=== PATIENT | male | born 1965 | race Caucasian/White ===

== ENCOUNTER → 2017-03-28 | Outpatient (CLI) | payer OTHER ==
[~2017-03-28] MED LIST: CETI10TA84 PO; IBUP-1277 PO; METF-384 PO; OXYC1TAB3 PO
[2017-03-28 17:53] LABS: BLOOD UREA NITROGEN 23 mg/dl (7-18); BUN/CREATININE RATIO 14.5 (10-20); CALCIUM 9.8 mg/dl (8.5-10.1); CARBON DIOXIDE 27 mmol/L (21-32); CHLORIDE 105 mmol/L (98-107); CREATININE 1.56 mg/dl (0.60-1.40); GLUCOSE 109 mg/dl (70-99); POTASSIUM 4.7 mmol/L (3.5-5.1); SODIUM 138 mmol/L (136-145)
[2017-03-28 18:04] LABS: CHOLESTEROL 131 mg/dl (0-200); CHOLESTEROL/HDL RATIO 1.9; HDL CHOLESTEROL 68 mg/dl; LDL CHOLESTEROL CALCULATED 48 mg/dl; THYROID STIMULATING HORMONE 0.687 uIu/ml (0.300-4.500); TRIGLYCERIDES 76 mg/dl (0-150); VERY LOW DENSITY LIPOPROT CALC 15 mg/dl
[2017-03-28 19:55] LABS: RATIO 526.6 mcg/mg (0-30.0)
[2017-03-29 07:24] LABS: ESTIMATED AVERAGE GLUCOSE 283 mg/dl; HA1C FLAG Normal (Normal)
== END | disposition home or self-care (01) ==
LOC: C.LABPBG 14:46
PROVIDERS: ATTEND Family Medicine
DX: E11.49 Type 2 diabetes mellitus with other diabetic neurological complication (principal)

== ENCOUNTER → 2017-04-06 | Day surgery (SDC) | payer OTHER ==
[~2017-04-06] VITALS: Ht 182.9 cm; Wt 95.0 kg
[~2017-04-06] MED LIST changes: +ASPCH81X PO; +DC ALL ANTICOAGULANTS ONE; +FENTANYL CITRATE INJ 50 MCG/1 ML 2 ML VIAL ONE; +HEPARIN SOD (PORCINE) 1000 UNIT/ML 10 ML VIAL ONE; +MIDAZOLAM HCL 1 MG/ML 2ML VIAL ONE; +NITROGLYCERIN/D5W 100MCG/ML 20ML SYR ONE; +NiCARDipine HCL INJ 2.5 MG/ML 10 ML AMP ONE; +OXYC-90 PO; -OXYC1TAB3 PO; +SODIUM CHLORIDE 0.9% 1000ML 1,000 ML IV SCH
[2017-04-06 07:15] VITALS: BP 141/89; PULSE 83; TEMP 36.5; O2SAT 99; Ht 182.9 cm; Wt 95.0 kg
--- NOTE | 2017-04-06 08:22 | History & Physical Bridge Note ---
H&P Re-Evaluation Bridge Note: I have examined the patient, reviewed the History & Physical and in the interval since the performance of the History & Physical I have noted the following changes of clinical significance: No changes noted
--- NOTE | 2017-04-06 09:21 | Cardiac Catheterization ---
Procedure Note Procedure Date Apr 06, 2017. Pre-Procedure Diagnosis Cardiomyopathy AUC Score 9 Post-Procedure Diagnosis Normal Coronary Arteries Procedure(s) Performed Coronary Angiography, Left Heart Cath, LV Angiography Senior Design Engineer Dr. Preston Fisher Trap(s) None Estimated Blood Loss None Medication(s) Heparin, Versed, Lidocaine 1% Summary of Findings Widely patent coronary anatomy. Low normal LVEF. Hemodynamics Rest Ao: 101/76 Final Ao: 115/68 LV: 114/1 Recommendations Medical therapy and/or Counseling Specimens None Radiation Exposure (mGy) 423 Contrast (mls) 114 Disposition Check Out Clerk Holding/Recovery ACC Data Cardiac Status Clinical evaluation leading to the procedure CAD Presntation: No Sxs, no angina Anginal Classification: No symptoms Heart Failure: No Cardiogenic Shock w/in 24Hrs: No Cardiac Arrest w/in 24Hrs: No Imaging studies past 6 months: Yes Stress studies past 6 months: No Coronary Anatomy Dominant: Right Left Main (% Stenosis): Normal LAD (% Stenosis): Normal Circumflex (% Stenosis): Normal RCA (% Stenosis): Normal Left Ventricular Angiography EF (%): 52% Diagnostic Status: Elective Closure Device Percutaneous Entry Location: Radial
--- NOTE | 2017-04-06 09:28 | Discharge Instructions ---
Discharge Instructions Procedure Procedure Date: Apr 06, 2017. Reason for Visit: Abn Echo *. Discharge Discharge Date: Apr 06, 2017. Discharge Diagnosis: Normal Coronaries and Low Normal LVEF Last Recorded Wt (Kilograms): 95 Anesthesia Post Anesthesia Instructions: If you have had General Anesthesia or IV Sedation: * Do not drive today. * Resume driving when surgeon permits. * Do not make important decisions or sign legal documents today. * Call surgeon for: 1. Temperature elevations greater than 101 degrees F. 2. Uncontrollable pain. 3. Excessive bleeding. 4. Persistent nausea and vomiting. 5. Medication intolerance (nausea, vomiting or rash). * For nausea and vomiting use only clear liquids such as: tea, soda, bouillon until nausea subsides, then gradually increase diet as tolerated. * If you have any concerns or questions, call your surgeon's office. If physician is unavailable and it is an emergency, call 911 or go to the nearest emergency room. Instructions Activity Recommendations: limitations Recommended Home Diet: resume previous diet Allergies: Coded Allergies: No Known Allergies (Unverified , 02/05/17) Provider Instructions ACTIVITY RECOMMENDATIONS: Excess manipulation of the wrist should be avoided for the next 24-48 hours. * No lifting over 2 pounds (approximately a 1/2 gallon of milk) with the utilized arm for 24 hours. * No strenuous activity such as bowling or tennis for 3 days. * Keep the site of the procedure covered with a bandage for 24 hours. *You may shower the day after the procedure. Do not take a tub bath or submerge the puncture site in water for the next 3 days. *Do not operate any motorized equipment for 3 days. SPECIAL CARE INSTRUCTIONS: The site may be slightly bruised and sore following your procedure. Should any of the following occur, contact the DrJessica who performed your procedure. 1. Redness/inflammation, swelling, chills, or fever, or colored drainage at procedure site within 3-7 days after your procedure. 2. Coldness, discoloration, ongoing numbness, severe pain, or swelling. Expect mild tingling of hand and tenderness at the puncture site for up to three days. If this persists beyond three days, or other symptoms develop, notify the DrJessica who performed your procedure. BLEEDING: If the procedure site on your wrist begins to bleed, do not panic 1. Place 1 or 2 fingers firmly just slightly above the insertion site to stop the bleeding. You may be able to feel your pulse as you hold pressure. 2. Lift your finger after 5 minutes to see if the bleeding has stopped. 3. Once the bleeding has stopped, gently wipe the wrist area clean with a bandage. * If the bleeding from your wrist does not stop after 10 minutes, or if there is a large amount of bleeding or spurting, call 911 (do not drive yourself to the hospital). SKIN IRRITATION: * You may experience some redness and/or swelling in the area where radiation was administered. If any skin irritation occurs, please contact your family physician. FOLLOW UP VISIT: Keep any scheduled doctor appointments. Follow Up Additional Instructions: Do not take Metformin for 3 days post heart catheterization. Follow-up with: Office will call [place] Recommendations: Call your doctor if: * Temperature above 101 degrees * Pain not relieved by pain medicine ordered * There is increased drainage or redness from any incision * You have any unanswered questions or concerns. Your Doctors Instructions noted above were prepared by provider Sj Preston. Patient Signature Section: Patient Instructions Signature Page Arturo Barksdale Patient (or Guardian) Signature/Date: I have read and understand the instructions given to me by my caregivers. Caregiver/RN/Doctor Signature/Date: The above-named patient and/or guardian has received patient instructions on this date. + Original Patient Signature Page (only) stays with chart. Please make copy for patient.
--- NOTE | 2017-04-06 09:31 | HISTORY & PHYSICAL EXAMINATION ---
DATE OF ADMISSION: 04/06/2017 CHIEF COMPLAINT: Preoperative clearance for oral surgery. HISTORY OF PRESENT ILLNESS: This is a 51-year-old diabetic male patient who was seen approximately a month ago by Dr. Gaines for preoperative risk assessment regarding oral surgery. He is a diabetic, who has not been compliant with medical care. Approximately 2 years ago, he had a cardiac catheterization that showed widely patent coronary arteries. He was then lost to followup to our group. He at that time was noted to have a low normal LVEF at around 52%. As part of the preoperative workup, the patient underwent an echocardiogram that showed a marked change in his LV systolic function with the estimated left ventricular ejection fraction being 20%-25%. There was also suggestion on the echocardiogram of new wall motion abnormalities of the inferior, anterior septal, and inferoseptal wall hypokinesis. The patient is here today for a repeat cardiac catheterization based on the abnormal echocardiogram to rule out significant coronary artery disease. The patient had a cardiac catheterization in 2011 that showed widely patent coronary anatomy. At that time, his estimated left ventricular ejection fraction was low normal at 52%. The patient does have a known chronic left bundle branch block. ALLERGIES: No known medical allergies. PAST MEDICAL HISTORY: The patient has a history of diabetes, which has not been well controlled. He has a problem with medical noncompliance. He has had diabetic neuropathy and a history of chronic chewing tobacco use. FAMILY MEDICAL HISTORY: Noncontributory. SOCIAL HISTORY: The patient uses smokeless tobacco. He is and lives with his family. REVIEW OF SYSTEMS: A 10-point review of systems is negative except for the history of chief complaint. PHYSICAL EXAMINATION: GENERAL: He is alert and oriented. VITAL SIGNS: Blood pressure is 116/70 and pulse is regular at 80. He is afebrile. HEENT: He is normocephalic. Pupils are equal and reactive to light. Extraocular muscles are intact bilaterally. NECK: The neck veins are flat. Carotids have good upstrokes bilaterally without bruits. Thyroid is nonpalpable. RESPIRATORY: Breath sounds equal bilaterally and clear to auscultation. CARDIOVASCULAR: Heart has a regular rhythm. Normal S1 and S2. No S3 or S4. No cardiac rubs or murmurs. GASTROINTESTINAL: Abdomen is soft and nontender without organomegaly. EXTREMITIES: Free of edema, digit clubbing, or cyanosis. NEUROLOGIC: Grossly intact. SKIN: Warm to touch. LYMPH NODES: Negative to palpation. IMPRESSION: 1. Abnormal echocardiogram suggesting an ischemic cardiomyopathy. 2. Preoperative risk assessment for oral surgery. 3. Chronic left bundle branch block. 4. Diabetes. RECOMMENDATIONS: The patient will proceed to cardiac catheterization today. I have explained the risks, benefits and intent of the procedure to him including the potential for catheter based intervention such as balloon angioplasty or intercoronary stenting. We will have further recommendations following the above.
[2017-04-06 10:15] VITALS: BP 120/78; PULSE 68; O2SAT 98
--- NOTE | 2017-04-06 10:23 | CARDIAC CATH REPORT ---
PROCEDURES: 1. Left heart catheterization. 2. Coronary angiography. 3. Left ventriculography. HISTORY OF PRESENT ILLNESS: This is a 51-year-old male patient who part of a preoperative risk assessment had an echocardiogram that was markedly abnormal suggesting a left ventricular ejection fraction of around 20% with wall motion abnormalities consistent with an ischemic cardiomyopathy. PROCEDURE SUMMARY: After informed consent was obtained, the patient taken to the cardiac catheterization lab where access was obtained from the right transradial approach. Preformed 5-Czech diagnostic catheters were utilized for the coronary angiograms. A 6-Czech pigtail catheter was utilized for the left ventriculogram. Following the procedure, the patient was returned to the holding area of the salvage laborer in stable condition. CORONARY ANGIOGRAPHY: Selective injections of the left coronary artery revealed the left main trunk to be widely patent. There is a [id number] size ramus branch from the left main trunk, which has minor ostial narrowing and is widely patent after the ostium. The left circumflex artery also has minor ostial narrowing with the left circumflex artery consisting of a single large marginal branch, which is widely patent. The LAD is widely patent throughout its course. The LAD system extends to the apex of the heart. The LAD is widely patent and within normal limits. Selective injections of the right coronary artery reveal the right coronary artery to be dominant. The right coronary artery is widely patent and within normal limits. LEFT VENTRICULOGRAM: The left ventricle is of normal size. The LVEDP is 1. The estimated left ventricular ejection fraction from single plane left ventriculogram is 52%. The mitral valve is competent. The aortic root and ascending aorta have normal morphology and diameter. SUMMARY: The patient has widely patent coronary anatomy and low normal left ventricular systolic function with an estimated left ventricular ejection fraction of 52%. RECOMMENDATIONS: I believe the patient based on the heart catheterization may proceed to oral surgery with an acceptable low risk of cardiovascular event.
--- NOTE | 2017-04-06 10:57 | Pre Sedation Assessment ---
Pre Sedation Assessment General Date of Sedation: Apr 06, 2017. Vital Signs Past 12 Hours Date Time Temp Pulse Resp B/P (MAP) Pulse Ox O2 Delivery O2 Flow Rate FiO2 04/06/17 10:15 68 18 120/78 (92) 98 Room Air 04/06/17 10:00 62 18 114/80 (91) 98 Room Air 04/06/17 09:45 62 18 114/80 (91) 98 Room Air 04/06/17 09:30 62 18 116/80 (92) 98 Room Air 04/06/17 09:15 65 18 112/80 (91) 98 Room Air 04/06/17 09:00 68 18 109/80 (90) 98 Room Air 04/06/17 08:45 68 18 130/80 (97) 98 Room Air 04/06/17 07:15 36.5 83 16 141/89 (106) 99 Room Air Review Cardiovascular: regular rate, rhythm Lungs: lungs clear Pre-Sedation Airway Assessment Smoking Status: Never Smoker Hx of Sleep Apnea: No Hx of difficult intubation: No Short Thick Neck: No Thyro-mental Distance: > 3 Finger Breadths Oral Cavity: WNL Mallampati Classification: Class II ASA Classification: Class II NPO Status Date of Last Intake of Fluids: Apr 06, 2017 Time of Last Intake of Fluids: 0600 Date of Last Intake of Solids: Apr 05, 2017 Time of Last Intake of Solids: 1800 Procedure Planning Contraindications for Sedation: None Current Medications Reviewed: Yes Notes The planned sedation has been discussed with the patient. Informed Consent was obtained. I have identified the patient, determined the appropriateness of sedation and have assessed the patient immediately prior to the procedure. All medicine(s) and interventions are by my order.
--- NOTE | 2017-04-06 10:57 | Post Sedation Assessment ---
Post Sedation Assessment General Date of Sedation Apr 06, 2017. Vital Signs: Vital Signs Past 12 Hours Date Time Temp Pulse Resp B/P (MAP) Pulse Ox O2 Delivery O2 Flow Rate FiO2 04/06/17 10:15 68 18 120/78 (92) 98 Room Air 04/06/17 10:00 62 18 114/80 (91) 98 Room Air 04/06/17 09:45 62 18 114/80 (91) 98 Room Air 04/06/17 09:30 62 18 116/80 (92) 98 Room Air 04/06/17 09:15 65 18 112/80 (91) 98 Room Air 04/06/17 09:00 68 18 109/80 (90) 98 Room Air 04/06/17 08:45 68 18 130/80 (97) 98 Room Air 04/06/17 07:15 36.5 83 16 141/89 (106) 99 Room Air Post Procedure Recovery Score Activity: (2) Moves 4 extremities * Respiration: (2) Deep breath/cough Circulation: (2) +/-20% PreAnes Value Consciousness: (2) Fully Awake Oxygen Saturation: (2) > 92% On Room Air Post Anesthesia Score: 10 Discharge Sedation Level of Care: Fast Track Phase II Post Sedation Plan On clinical assessment, the patient appears to have tolerated the sedation without complications. Patient is recovering as anticipated. Patient will continue to be monitored by nursing and may be discharged when sedation discharge criteria are met per below protocol. Upon Completions of procedure and additional 15 minutes continue every 5 minute vital signs and the P.A.R. score; then discharge to a Phase I or Fast Track to Phase II per the following guidelines: * Discharge Patient to appropriate Phase II area if PAR is 8 or greater or return to pre- procedure baseline. The post - procedure orders will be as directed. * If PAR score is less than 8 or not return to pre-procedure baseline then patient will follow Phase I monitoring till PAR is reached for Phase II. The Phase I may be done in procedure room or may call to secure a Phase I area. * If naloxone or flumazenil are used for reversal, hold in Phase I for an additional 60 -120 minutes before discharge to Phase II. Please call the Sedation Physician to re-evaluate and complete post-note for discharge to Phase II area. Do NOT discharge from procedure sedation or Phase 1 until post- sedation evaluation note is complete by procedure /sedation MD Sedation Discharge Instructions to be given to the patient at discharge to home.
== END | disposition home or self-care (01) ==
LOC: C.CATH 06:44
PROVIDERS: ATTEND Internal Medicine Cardiovascular Disease
DX: R94.31 Abnormal electrocardiogram [ECG] [EKG] (principal); F17.220 Nicotine dependence, chewing tobacco, uncomplicated; E11.40 Type 2 diabetes mellitus with diabetic neuropathy, unspecified; I44.7 Left bundle-branch block, unspecified; Z91.19 Patient's noncompliance with other medical treatment and regimen

== ENCOUNTER → 2017-04-07 | Outpatient (CLI) | payer OTHER ==
[~2017-04-07] MED LIST changes: -CETI10TA84 PO; -DC ALL ANTICOAGULANTS ONE; -FENTANYL CITRATE INJ 50 MCG/1 ML 2 ML VIAL ONE; -HEPARIN SOD (PORCINE) 1000 UNIT/ML 10 ML VIAL ONE; -IBUP-1277 PO; -MIDAZOLAM HCL 1 MG/ML 2ML VIAL ONE; -NITROGLYCERIN/D5W 100MCG/ML 20ML SYR ONE; -NiCARDipine HCL INJ 2.5 MG/ML 10 ML AMP ONE; -OXYC-90 PO; -SODIUM CHLORIDE 0.9% 1000ML 1,000 ML IV SCH
[2017-04-07 18:11] LABS: BLOOD UREA NITROGEN 22 mg/dl (7-18); BUN/CREATININE RATIO 15.3 (10-20); CALCIUM 9.4 mg/dl (8.5-10.1); CARBON DIOXIDE 28 mmol/L (21-32); CHLORIDE 104 mmol/L (98-107); CREATININE 1.42 mg/dl (0.60-1.40); GLUCOSE 120 mg/dl (70-99); POTASSIUM 4.1 mmol/L (3.5-5.1); SODIUM 138 mmol/L (136-145)
== END | disposition home or self-care (01) ==
LOC: C.LABPBG 13:37
PROVIDERS: ATTEND Internal Medicine Interventional Cardiology
DX: I42.8 Other cardiomyopathies (principal)

== ENCOUNTER → 2017-06-24 | Outpatient (CLI) | payer OTHER ==
[2017-06-24 12:34] LABS: BASO % 0.3 %; BASO ABS # 0.02 K/uL (0-0.2); EOS % 1.7 %; EOS ABS # 0.12 K/uL (0-0.5); HEMATOCRIT 40.1 % (42-52); HEMOGLOBIN 13.4 g/dL (14.0-18.0); IG# 0.02 K/uL (0.00-0.02); LYMPH % 18.9 %; LYMPH ABS # 1.37 K/uL (1.2-3.4); MEAN CELL VOLUME 85.9 fL (80-100); MEAN CORPUSCULAR HEMOGLOBIN 28.7 pg (25-34); MEAN CORPUSCULAR HGB CONC 33.4 g/dl (32-36); MONO % 6.5 %; MONO ABS # 0.47 K/uL (0.11-0.59); NEUT % 72.3 %; NEUT ABS # 5.25 K/uL (1.4-6.5); PLATELET COUNT 206 K/uL (130-400); RED CELL DISTRIBUTION WIDTH CV 14.4 % (11.5-14.5); RED CELL DISTRIBUTION WIDTH SD 44.9 fL (36.4-46.3); WHITE BLOOD COUNT 7.25 K/uL (4.8-10.8)
[2017-06-24 13:13] LABS: HEMOGLOBIN A1C 6.3 % (4.5-5.6)
== END | disposition home or self-care (01) ==
LOC: C.LABPBG 07:49
PROVIDERS: ATTEND Family Medicine
DX: E53.8 Deficiency of other specified B group vitamins (principal); E11.49 Type 2 diabetes mellitus with other diabetic neurological complication

== ENCOUNTER → 2017-07-13 | Day surgery (SDC) | payer OTHER ==
[2017-06-28 07:34] VITALS: BMI 24.0
[~2017-07-13] VITALS: Ht 182.9 cm; Wt 80.5 kg
[~2017-07-13] MED LIST changes: +LIDOCAINE HCL 2% 2 ML VIAL (20MG/ML) ONE; -METF-384 PO; +PROPOFOL IV EMULSION 10 MG/ML 20 ML VIAL IV ONE; +SODIUM CHLORIDE 0.9% 500ML 500 ML IV ONE
[2017-07-13 12:22] VITALS: Ht 182.9 cm; Wt 80.5 kg
[2017-07-13 12:26] VITALS: TEMP 36.6
--- NOTE | 2017-07-13 12:59 | Endo History and Physical ---
History & Physical Date of Service: Jul 13, 2017. Chief Complaint: DYSPHAGIA FOR PAST COUPLE YEARS Referring Physician: DR. BRAGG History of Present Illness 52 yo CM who presents for EGD secondary to dysphagia. Past Medical History Diabetes Past Surgical History Hx Cardiac Surgery: Yes (HEART CATH, NO STENTS) Hx Internal Defibrillator: No Hx Pacemaker: No Hx Abdominal Surgery: No Hx of Implantable Prosthesis: No Hx Post-Op Nausea and Vomiting: No Hx Cancer Surgery: No Hx Thoracic Surgery: No Hx Orthopedic: No Hx Urinary Tract Surgery: No Family History None Social History Smoking Status: Never Smoker Hx Substance Use: No Hx Alcohol Use: No Allergies Coded Allergies: No Known Allergies (Unverified , 07/13/17) Current Medications Reported Home Medications Medications Dose Route/Sig Max Daily Dose Days Date Category Aspirin Chewable (Aspirin) 81 Mg Chew 81 Mg PO QAM 04/06/17 Reported Vital Signs Weight (Kilograms): 80.45 Height (Feet): 6 Height (Inches): 0 Date Time Temp Pulse Resp B/P (MAP) Pulse Ox O2 Delivery O2 Flow Rate FiO2 07/13/17 12:26 36.6 82 20 147/85 (105) 20 Room Air Physical Exam General Appearance: WD/WN, no apparent distress Respiratory/Chest: Auscultation: breath sounds normal Cardiovascular: Heart Auscultation: RRR Abdomen: Bowel Sounds: normal Inspection & Palpation: soft, non-distended, no tenderness, guarding & rebound Assessment and Plan Assessment: 52 yo CM who presents for EGD secondary to dysphagia. Plan: Proceed with colonoscopy.
--- NOTE | 2017-07-13 13:20 | Discharge Instructions ---
Endoscopy Patient Instructions Date / Procedure(s) Performed Jul 13, 2017. EGD Allergy Information Coded Allergies: No Known Allergies (Unverified , 07/13/17) Discharge Date / Findings Jul 13, 2017. Gastritis s/p biopsies Medication Instructions OK to resume all medications today as prescribed Reported Home Medications Medications Dose Route/Sig Max Daily Dose Days Date Category Aspirin Chewable (Aspirin) 81 Mg Chew 81 Mg PO QAM 04/06/17 Reported Provider Instructions Activity Restrictions - No exercising or heavy lifting for 24 hours. - Do not drink alcohol the day of the procedure. - Do not drive a car or operate machinery until the day after the procedure. - Do not make any important decisions or sign important papers in 24 hours after the procedure. Following Day: - Return to full activity which may include returning to work/school. Diet Start your diet with liquids and light foods (jello, soup, juice, toast). Then eat your usual diet if not nauseated. Treatment For Common After Affects For mild abdominal pain, bloating, or excessive gas: - Rest - Eat lightly - Lie on right side Follow-Up Information Follow-up with DR. BRAGG as scheduled Anesthesia Information What You Should Know You have had a procedure that required some medicine to reduce anxiety and discomfort. This treatment is called moderate sedation. After receiving the treatment, you may be sleepy, but you will be able to breathe on your own. The effects of the treatment may last for several hours. Follow these instructions along with Activity/Diet recommendations noted above: * Do NOT do anything where dizziness or clumsiness would be dangerous. * Rest quietly at home today, then you can be up and about tomorrow. * Have a responsible person stay with you the rest of today. * You may have had an I.V. today. If so, you may take the dressing off later today. Recommendations Call your doctor if: * Trouble breathing * Continuous vomiting for more than 24 hours * Temperature above 101 degrees * Severe abdominal pain or bloating * Pain not relieved by pain medicine ordered * There is increased drainage or redness from any incision * A large amount of rectal bleeding greater than 2-3 tablespoons. (If you had a polyp/s removed or have hemorrhoids, a small amount of blood - from the rectum is to be expected.) * You have any unanswered questions or concerns. IN THE EVENT OF A SERIOUS EMERGENCY, GO TO THE NEAREST EMERGENCY ROOM Your discharge instructions were prepared by provider Cedric Kyle. Patient Instructions Signature Page Arturo Barksdale Patient (or Guardian) Signature/Date: I have read and understand the instructions given to me by my caregivers. Caregiver/RN/Doctor Signature/Date: The above-named patient and/or guardian has received patient instructions on this date. + Original Patient Signature Page (only) stays with chart. Please make copy for patient.
--- NOTE | 2017-07-13 13:24 | GI REPORT ---
Procedure Date: 07/13/2017 1:00 PM Procedure: Upper GI endoscopy Indications: Dysphagia Medicines: Monitored Anesthesia Care Complications: No immediate complications. Estimated Blood Loss: Estimated blood loss: none. Procedure: Pre-Anesthesia Assessment: - Prior to the procedure, a History and Physical was performed, and patient medications and allergies were reviewed. The patient's tolerance of previous anesthesia was also reviewed. The risks and benefits of the procedure and the sedation options and risks were discussed with the patient. All questions were answered, and informed consent was obtained. Prior Anticoagulants: The patient has taken aspirin, last dose was 1 day prior to procedure. ASA Grade Assessment: III - A patient with severe systemic disease. After reviewing the risks and benefits, the patient was deemed in satisfactory condition to undergo the procedure. After obtaining informed consent, the endoscope was passed under direct vision. Throughout the procedure, the patient's blood pressure, pulse, and oxygen saturations were monitored continuously. The On-site loaner was introduced through the mouth, and advanced to the second part of duodenum. The upper GI endoscopy was accomplished without difficulty. The patient tolerated the procedure well. Findings: No endoscopic abnormality was evident in the esophagus to explain the patient's complaint of dysphagia. Localized mild inflammation characterized by erythema was found in the gastric antrum. Biopsies were taken with a cold forceps for histology. The examined duodenum was normal. Impression: - No endoscopic esophageal abnormality to explain patient's dysphagia. - Gastritis. Biopsied. - Normal examined duodenum. Recommendation: - Resume previous diet. - Use Protonix (pantoprazole) 40 mg PO daily. - Perform a barium swallow using barium in liquid and tablet form at appointment to be scheduled. - Await pathology results. - Return to GI office as previously scheduled. Cedric Kyle DO 07/13/2017 1:24:14 PM This report has been signed electronically. Note Initiated On: 07/13/2017 1:00 PM I attest to the content of the Intraoperative Record and orders documented therein, exceptions below
--- NOTE | 2017-07-13 13:46 | Anesthesiology Progress Note ---
Anesthesia Post Op Note Date & Time Jul 13, 2017 at 13:46 Vital Signs Pain Intensity: 0 Vital Signs Past 12 Hours Date Time Temp Pulse Resp B/P (MAP) Pulse Ox O2 Delivery O2 Flow Rate FiO2 07/13/17 13:36 71 16 103/77 (86) 96 Room Air 07/13/17 13:21 66 16 107/58 (74) 98 Room Air 07/13/17 12:26 36.6 82 20 147/85 (105) 20 Room Air Notes Mental Status: alert / awake / arousable, participated in evaluation Pt Amnestic to Procedure: Yes Nausea / Vomiting: adequately controlled Pain: adequately controlled Airway Patency, RR, SpO2: stable & adequate BP & HR: stable & adequate Hydration State: stable & adequate Anesthetic Complications: no major complications apparent
[2017-07-13 13:51] VITALS: BP 120/65; PULSE 69; O2SAT 98
== END | disposition home or self-care (01) ==
LOC: C.GI 12:01
PROVIDERS: ATTEND Internal Medicine
DX: R13.10 Dysphagia, unspecified (principal); K29.50 Unspecified chronic gastritis without bleeding; I50.9 Heart failure, unspecified; I25.2 Old myocardial infarction; E11.9 Type 2 diabetes mellitus without complications; Z79.82 Long term (current) use of aspirin

== ENCOUNTER → 2017-07-19 | Outpatient (CLI) | payer OTHER ==
[~2017-07-19] MED LIST changes: -LIDOCAINE HCL 2% 2 ML VIAL (20MG/ML) ONE; -PROPOFOL IV EMULSION 10 MG/ML 20 ML VIAL IV ONE; -SODIUM CHLORIDE 0.9% 500ML 500 ML IV ONE
--- NOTE | 2017-07-19 07:56 | DIAGNOSTIC IMAGING REPORT ---
(BARIUM SWALLOW) ESOPHAGUS CLINICAL HISTORY: Globus sensation. Dysphagia. COMPARISON STUDY: None. FLUOROSCOPY TIME: 1.3 minutes. FINDINGS: 23 fluoroscopic images were obtained. No esophageal mass or stricture was identified. Mucosal detail is suboptimal on this exam but no lesion is identified. Note was made of mild esophageal dysmotility. There was no gastroesophageal reflux and no hiatal hernia was identified. IMPRESSION: 1. Mild esophageal dysmotility. 2. No esophageal mass or stricture identified although suboptimal mucosal detail on this exam. Electronically signed by: Aubrey Reid M.D. 07/19/2017 7:54 AM Dictated Date/Time: 07/19/2017 7:53 AM
== END | disposition home or self-care (01) ==
LOC: C.RAD 07:25
PROVIDERS: ATTEND Internal Medicine
DX: F45.8 Other somatoform disorders (principal); R13.10 Dysphagia, unspecified

== ENCOUNTER → 2017-11-01 | Outpatient (CLI) | payer OTHER ==
[2017-11-01 12:45] LABS: BASO % 0.6 %; BASO ABS # 0.03 K/uL (0-0.2); EOS % 2.1 %; EOS ABS # 0.11 K/uL (0-0.5); HEMATOCRIT 41.5 % (42-52); LYMPH % 32.2 %; LYMPH ABS # 1.65 K/uL (1.2-3.4); MEAN CELL VOLUME 88.9 fL (80-100); MEAN CORPUSCULAR HGB CONC 33.7 g/dl (32-36); MEAN PLATELET VOLUME 11.3 fL (7.4-10.4); MONO ABS # 0.41 K/uL (0.11-0.59); NEUT % 57.1 %; NEUT ABS # 2.92 K/uL (1.4-6.5); PLATELET COUNT 178 K/uL (130-400); RED CELL DISTRIBUTION WIDTH CV 13.9 % (11.5-14.5); RED CELL DISTRIBUTION WIDTH SD 45.1 fL (36.4-46.3); WHITE BLOOD COUNT 5.12 K/uL (4.8-10.8)
[2017-11-01 13:09] LABS: BLOOD UREA NITROGEN 25 mg/dl (7-18); CALCIUM 9.5 mg/dl (8.5-10.1); CARBON DIOXIDE 29 mmol/L (21-32); CREATININE 1.31 mg/dl (0.60-1.40); GLUCOSE 91 mg/dl (70-99); POTASSIUM 4.4 mmol/L (3.5-5.1); SODIUM 139 mmol/L (136-145)
== END | disposition home or self-care (01) ==
LOC: C.LABPBG 07:15
PROVIDERS: ATTEND Family Medicine
DX: R11.0 Nausea (principal); R53.83 Other fatigue; R42 Dizziness and giddiness; E11.49 Type 2 diabetes mellitus with other diabetic neurological complication

== ENCOUNTER 2019-03-15 17:59 | Inpatient (IN) ==
[2019-03-15] MEDS ORDERED: OPTIRAY 320 125ml IV PRN (18:20)
--- NOTE | 2019-03-15 18:21 | CT Scan Report ---
CT SCAN OF THE BRAIN WITHOUT IV CONTRAST CLINICAL HISTORY: Strokelike symptoms. COMPARISON STUDY: No priors. TECHNIQUE: Unenhanced axial CT scan of the brain is performed from the vertex to the skull base. A d ose lowering technique was utilized adhering to the principles of ALARA. CT DOSE: 537.48 mGy.cm FINDINGS: Brain parenchyma: The brain parenchyma is normal in appearance. There is no hemorrhage, mass effect, or evidence of acute territorial ischemia by CT criteria. Capps-white matter differentiation is preser carmen. No extra-axial fluid collection is seen. Ventricles, sulci, cisterns: Normal in configuration. Intracranial vasculature: There is mild atherosclerotic calcification of the cavernous carotid and ve rtebral arteries. Calvarium: Unremarkable. Sinuses and mastoids: The visualized paranasal sinuses are clear. The mastoid air cells are well pneu matized. Orbits: The bony orbits are grossly intact. IMPRESSION: There is no hemorrhage, mass effect, or evidence of acute territorial ischemia by CT adalgisa ryder. Findings were called to Dr. Pat in the emergency department at the time of interpretation. Electronically signed by: Larry Alexander M.D. 03/15/2019 6:20 PM
[2019-03-15] MEDS ORDERED: MAGNESIUM SULFATE / D5W 1 GM/100 ML BAG IV ONE (18:34)
[2019-03-15] MEDS ORDERED: SODIUM CHLORIDE 0.9% 1000ML 1,000 ML IV ONE (18:35)
[2019-03-15 18:49] LABS: iSTAT Creatinine 1.7 mg/dl (0.6-1.3); iSTAT Hemoglobin 14.3 g/dl (14.0-18.0); iSTAT Ionized Calcium 1.19 mmol/l (1.12-1.32); iSTAT Potassium 4.2 mEq/L (3.3-5.0)
--- NOTE | 2019-03-15 18:49 | Emergency Department Note ---
Entered by Karina Thompson acting as a scribe for History of Present Illness General Chief complaint: Stroke/CVA Symptoms Stated complaint: L ARM PAIN, BLURRY VISION Time Seen by Provider: 03/15/19 18:09 Source: patient History of Present Illness Onset (ago): hour(s) (1530 today) Location: head, upper extremity and lower extremity Pain Consistency: + now resolved (difficulty speaking, inability to lift left arm) Maximum Pain Intensity: 2 Quality: + other (stroke like symptoms) Associated symptoms: + other (Positive inability to lift his left arm (resolved), difficulty speaking (resolved), left facial numbness/tingling, indigestion. Negative cardiac stents. ) The patient is a 53 year old male who presents to the ED with complaints of stroke like symptoms beginning at 1530 today. He has a hx of diabetes, CAD, nonischemic cardiomyopathy, chronic rhinitis. At 1530 today, the patient reports he was unable to lift his left arm, had difficulty speaking, and the left side of his face was tingling. His symptoms resolved and returned 30 minutes later, around 1600. The patient denies any difficulty moving his left arm currently and his speech is normal. He is complaining of left facial numbness and indigestion. The patient denies any cardiac stents. Home Medications Home Medications Medication Instructions Recorded Confirmed Type empagliflozin 10 mg tablet See Rx Instructions .ROUTE 02/15/19 03/15/19 Rx .COMPLEX #30 tablet metoprolol succinate 50 mg 75 mg PO DAILY tab 02/27/19 03/15/19 History tablet,extended release 24 hr dulaglutide 0.75 mg/0.5 mL 0.75 mg SQ WEEKLY #2 ml 03/06/19 03/15/19 Rx subcutaneous pen injector levocetirizine 5 mg tablet 5 mg PO DAILY #30 tab 03/06/19 03/15/19 Rx Allergies Allergy/AdvReac Type Severity Reaction Status Date / Time No Known Allergies Allergy Unverified 03/15/19 18:42 Past Med/Surg History Medical History Allergic rhinitis B12 deficiency Chronic rhinitis Coronary artery disease Diabetes Diabetes mellitus type 2 with neurological manifestations Diabetic autonomic neuropathy Gastritis History of diabetic ulcer of foot Left bundle branch block Microalbuminuria Nonischemic cardiomyopathy Retinopathy Type 2 diabetes mellitus with other diabetic kidney complication Surgical History S/P cardiac cath 2015 Family History Mother Diabetes Breast cancer Social History Preferred Language: German Communication Ability: Effective Visual Impairment: No Limitations Hearing Ability: Normal Clamshell Operator Required: No Beliefs That Will Affect Care: None marital status: Current Living Situation: Spouse current occupational status: employed Other Information That Helps Us Care for You: No Feels Safe at Home: Yes Smoking Status: Unknown if ever smoked Hx Alcohol Use: No Hx Substance Use: No Dental Care, Regularly: Yes Physical Activity Frequency: 5-6 Times per Week Seatbelt Use: sometimes Sunscreen Use: No Review of Systems See HPI for pertinent positives & negatives. and A total of 10 systems reviewed and were otherwise negative Physical Exam Vital Signs Vital Signs - 24 hr 03/15/19 18:05 03/15/19 18:41 03/15/19 18:43 Temperature 36.6 C Temperature Source Oral Oral Pulse Rate 88 140 H Respiratory Rate 18 Respiratory Effort / Characteristics Non-Labored Respiratory Depth Normal Blood Pressure 148/97 H Blood Pressure Mean 114 Pulse Oximetry 98 Oxygen Delivery Method Room Air Room Air Sepsis Recent Fever Within 48 Hours No Sepsis Action Taken by Nursing No Action Required 03/15/19 18:45 03/15/19 18:59 03/15/19 19:00 Temperature Temperature Source Pulse Rate 88 88 89 Respiratory Rate Respiratory Effort / Characteristics Respiratory Depth Blood Pressure 149/103 H Blood Pressure Mean 109 Pulse Oximetry Oxygen Delivery Method Sepsis Recent Fever Within 48 Hours Sepsis Action Taken by Nursing 03/15/19 19:07 03/15/19 19:08 03/15/19 19:15 Temperature Temperature Source Pulse Rate 90 90 89 Respiratory Rate Respiratory Effort / Characteristics Respiratory Depth Blood Pressure 145/99 H 164/100 H Blood Pressure Mean 118 122 Pulse Oximetry Oxygen Delivery Method Sepsis Recent Fever Within 48 Hours Sepsis Action Taken by Nursing 03/15/19 19:18 03/15/19 19:30 03/15/19 19:45 Temperature Temperature Source Pulse Rate 87 85 84 Respiratory Rate Respiratory Effort / Characteristics Respiratory Depth Blood Pressure 169/103 H 182/99 H Blood Pressure Mean 126 124 Pulse Oximetry Oxygen Delivery Method Sepsis Recent Fever Within 48 Hours Sepsis Action Taken by Nursing 03/15/19 19:46 03/15/19 20:00 03/15/19 20:15 Temperature Temperature Source Pulse Rate 87 83 82 Respiratory Rate 20 Respiratory Effort / Characteristics Respiratory Depth Blood Pressure 152/87 H 149/95 H Blood Pressure Mean 99 108 Pulse Oximetry 98 Oxygen Delivery Method Sepsis Recent Fever Within 48 Hours Sepsis Action Taken by Nursing 03/15/19 20:16 Temperature Temperature Source Pulse Rate 83 Respiratory Rate 20 Respiratory Effort / Characteristics Respiratory Depth Blood Pressure 159/100 H Blood Pressure Mean 125 Pulse Oximetry 97 Oxygen Delivery Method Sepsis Recent Fever Within 48 Hours Sepsis Action Taken by Nursing GENERAL: Awake, alert, well-appearing, in no acute distress HENT: Normocephalic, atraumatic. Oropharynx unremarkable. EYES: Normal conjunctiva. Sclera non-icteric. NECK: Supple. No nuchal rigidity. FROM. No JVD. RESPIRATORY: Clear to auscultation. CARDIAC: Regular rate, normal rhythm. Extremities warm and well perfused. Pulses equal. ABDOMEN: Soft, non-distended. No tenderness to palpation. No rebound or guarding. No masses. RECTAL: Deferred. MUSCULOSKELETAL: Chest examination reveals no tenderness. The back is symmetrical on inspection without obvious abnormality. There is no CVA tenderness to palpation. No joint edema. LOWER EXTREMITIES: Calves are equal size bilaterally and non-tender. No edema. No discoloration. NEURO: Normal sensorium. No sensory or motor deficits noted. SKIN: No rash or jaundice noted. Course Course 1819: Discussed the patients case with Dr. Alexander, Radiology. He states negative stroke. 1824: Past medical records reviewed. The patient was evaluated in room A1. A complete history and physical exam was performed. 1844: Discussed the patient's case with Lizzette Romero [facility]rology. He will evalaute the patient. 1930: Discussed the patient's case with Lizzette Romero Neurology. He recommends checking a homocysteine level, putting the patient on a heparin standard with bolus of 5000, strict bedrest until tomorrow morning, keeping the patient at baby aspirin 81 mg, keeping magnesium between 2 and 2.5. He states to call him back if the patient changes at all. He would also like us to check the weather for [facility] if the patient gets worse. 1944: Discussed the patient's case with Dr. Barkley, [facility] Hospitalist. The patient will be evaluated for further management. Administered Medications Heparin Sodium/Dextrose (Heparin Sodium/Dextrose) 25,000 units in 500 mls @ 32 mls/hr IV .[id number] ANN-MARIE; Protocol Stop: 04/14/19 19:44 Last Titration: 03/15/19 23:03 Dose: 1,600 units/hr, 32 mls/hr Documented by: [id number] Cosigned by: [id number] Admin: 03/15/19 19:55 Dose: 1,600 units/hr, 32 mls/hr Documented by: [id number] Cosigned by: [id number] Sodium Chloride (Nss 1000ml) 1,000 mls @ 50 mls/hr IV .Q20H [facility] Stop: 04/14/19 21:59 Last Admin: 03/15/19 22:46 Dose: 50 mls/hr Documented by: [id number] Insulin Aspart (Novolog Flexpen) 0 units SC ACHS [facility] Stop: 04/14/19 21:59 Last Admin: 03/15/19 22:49 Dose: Not Given Documented by: [id number] Cosigned by: [id number] Insulin Glargine (Lantus Solostar Pen) 18 units SC BID [facility] Stop: 04/14/19 21:59 Last Admin: 03/15/19 22:47 Dose: 18 units Documented by: [id number] Cosigned by: [id number] Ioversol (Optiray 320 125ml) 119 ml IV ONCE PRN PRN Reason: Interaction Checking Stop: 03/19/19 18:19 Last Admin: 03/15/19 18:22 Dose: 119 ml Documented by: [id number] Discontinued Medications Heparin Sodium (Porcine) (Heparin Iv Bolus) Confirm Administered Dose 10,000 units .ROUTE .STK-MED ONE Stop: 03/15/19 19:49 Last Admin: 03/15/19 19:56 Dose: 5,000 units Documented by: [id number] Cosigned by: [id number] Heparin Sodium/Dextrose () 1 ea IV NOW STA; Protocol Stop: 03/15/19 19:33 Last Admin: 03/15/19 19:57 Dose: 1 ea Documented by: [id number] Magnesium Sulfate/Dextrose (Magnesium Sulfate / D5w) 1 gm in 100 mls @ 100 mls/hr IV ONE ONE Stop: 03/15/19 19:33 Last Infusion: 03/15/19 20:04 Dose: 0 mls/hr Documented by: [id number] Admin: 03/15/19 18:43 Dose: 100 mls/hr Documented by: [id number] Sodium Chloride (Nss 1000ml) 1,000 mls @ 999 mls/hr IV .Q1H1M ONE Stop: 03/15/19 19:35 Last Infusion: 03/15/19 20:04 Dose: 0 mls/hr Documented by: [id number] Admin: 03/15/19 18:43 Dose: 999 mls/hr Documented by: [id number] Lorazepam (Ativan) 2 mg in 4 mls @ 4 mls/min IV NOW STA Stop: 03/15/19 20:07 Last Admin: 03/15/19 20:38 Dose: 4 mls/min Documented by: [id number] Medical Decision Making Differential Diagnosis Differential diagnosis: Etiologies such as metabolic, infection, hypo/hyperglycemia, electrolyte abnormalities, cardiac sources, intracerebral event, toxicologic, neurologic, as well as others were entertained. Medical Records Attestation: I reviewed the patient's medical records. Home Medications Current Medication List: was personally reviewed by me Laboratory Data Attestation: I reviewed the patient's lab results. Result diagrams: 03/15/19 18:33 03/15/19 18:33 Lab Results 03/15/19 03/15/19 03/15/19 Range/Units 18:27 18:33 18:33 WBC 6.58 (4.8-10.8) K/uL RBC 4.82 (4.7-6.1) M/uL Hgb 14.5 (14.0-18.0) g/dL POC Hgb (14.0-18.0) g/dl Hct 41.7 L (42-52) % POC Hct (42-52) % MCV 86.5 (80-100) fL MCH 30.1 (25-34) pg MCHC 34.8 (32-36) g/dL RDW Std Deviation 41.2 (36.4-46.3) fL RDW Coeff of Nicola 12.9 (11.5-14.5) % Plt Count 164 (130-400) K/uL MPV 10.6 H (7.4-10.4) fL Immature Gran % (Auto) 0.2 % Neut % (Auto) 60.4 % Lymph % (Auto) 29.8 % Tucker % (Auto) 7.8 % Eos % (Auto) 1.5 % Baso % (Auto) 0.3 % Immature Gran # (Auto) 0.01 (0.00-0.02) K/uL Neut # (Auto) 3.98 (1.4-6.5) K/uL Lymph # (Auto) 1.96 (1.2-3.4) K/uL Tucker # (Auto) 0.51 (0.11-0.59) K/uL Eos # (Auto) 0.10 (0-0.5) K/uL Baso # (Auto) 0.02 (0-0.2) K/uL PT 10.2 (9.0-12.0) Seconds INR 1.0 (0.9-1.1) APTT 24.1 (21.0-31.0) Seconds PTT Ratio 0.9 POC Sodium (135-144) mEq/L Sodium (136-145) mmol/L POC Potassium (3.3-5.0) mEq/L Potassium (3.5-5.1) mmol/L POC Chloride (101-112) mEq/L Chloride (98-107) mmol/L Carbon Dioxide (21-32) mmol/L POC Total CO2 (24-31) mEq/l Anion Gap (3-11) POC Anion Gap (16-25) mmol/L POC BUN (7-18) mg/dl BUN (7-18) mg/dl Creatinine (0.6-1.4) mg/dl POC Creatinine (0.6-1.3) mg/dl Est Cr Clr Drug Dosing ml/min Est GFR ( Amer) Est GFR (Non-Af Amer) BUN/Creatinine Ratio (10-20) Glucose (70-99) mg/dl POC Glucose 163 H (70-99) POC Glucose (other) (70-99) mg/dl Calcium (8.5-10.1) mg/dl POC Ioniz Calcium Alfa (1.12-1.32) mmol/l Magnesium (1.8-2.4) mg/dl Total Bilirubin (0.2-1) mg/dl AST (15-37) U/L ALT (12-78) U/L Alkaline Phosphatase (45-117) U/L CK-MB (CK-2) (0.5-3.6) ng/ml Troponin I (0-0.045) ng/ml Total Protein (6.4-8.2) gm/dl Albumin (3.4-5.0) gm/dl Globulin (2.5-4.0) gm/dl Albumin/Globulin Ratio (0.9-2) 03/15/19 03/15/19 Range/Units 18:33 18:34 WBC (4.8-10.8) K/uL RBC (4.7-6.1) M/uL Hgb (14.0-18.0) g/dL POC Hgb 14.3 (14.0-18.0) g/dl Hct (42-52) % POC Hct 42 (42-52) % MCV (80-100) fL MCH (25-34) pg MCHC (32-36) g/dL RDW Std Deviation (36.4-46.3) fL RDW Coeff of Nicola (11.5-14.5) % Plt Count (130-400) K/uL MPV (7.4-10.4) fL Immature Gran % (Auto) % Neut % (Auto) % Lymph % (Auto) % Tucker % (Auto) % Eos % (Auto) % Baso % (Auto) % Immature Gran # (Auto) (0.00-0.02) K/uL Neut # (Auto) (1.4-6.5) K/uL Lymph # (Auto) (1.2-3.4) K/uL Tucker # (Auto) (0.11-0.59) K/uL Eos # (Auto) (0-0.5) K/uL Baso # (Auto) (0-0.2) K/uL PT (9.0-12.0) Seconds INR (0.9-1.1) APTT (21.0-31.0) Seconds PTT Ratio POC Sodium 135 (135-144) mEq/L Sodium 134 L (136-145) mmol/L POC Potassium 4.2 (3.3-5.0) mEq/L Potassium 4.1 (3.5-5.1) mmol/L POC Chloride 103 (101-112) mEq/L Chloride 104 (98-107) mmol/L Carbon Dioxide 22 (21-32) mmol/L POC Total CO2 24 (24-31) mEq/l Anion Gap 8.0 (3-11) POC Anion Gap 13.0 L (16-25) mmol/L POC BUN 29 H (7-18) mg/dl BUN 30 H (7-18) mg/dl Creatinine 1.79 H (0.6-1.4) mg/dl POC Creatinine 1.7 H (0.6-1.3) mg/dl Est Cr Clr Drug Dosing 59.3 ml/min Est GFR ( Amer) 48.7 Est GFR (Non-Af Amer) 42.0 BUN/Creatinine Ratio 16.9 (10-20) Glucose 177 H (70-99) mg/dl POC Glucose (70-99) POC Glucose (other) 180 H (70-99) mg/dl Calcium 9.4 (8.5-10.1) mg/dl POC Ioniz Calcium Alfa 1.19 (1.12-1.32) mmol/l Magnesium 2.0 (1.8-2.4) mg/dl Total Bilirubin 0.4 (0.2-1) mg/dl AST 22 (15-37) U/L ALT 34 (12-78) U/L Alkaline Phosphatase 72 (45-117) U/L CK-MB (CK-2) 4.0 H (0.5-3.6) ng/ml Troponin I < 0.015 (0-0.045) ng/ml Total Protein 7.2 (6.4-8.2) gm/dl Albumin 3.5 (3.4-5.0) gm/dl Globulin 3.7 (2.5-4.0) gm/dl Albumin/Globulin Ratio 1.0 (0.9-2) Imaging Data Radiologist's Impression: Radiology results as stated below per my review and the radiologist's interpretation: CT SCAN OF THE BRAIN WITHOUT IV CONTRAST CLINICAL HISTORY: Strokelike symptoms. COMPARISON STUDY: No priors. TECHNIQUE: Unenhanced axial CT scan of the brain is performed from the vertex to the skull base. A dose lowering technique was utilized adhering to the principles of ALARA. CT DOSE: 537.48 mGy.cm FINDINGS: Brain parenchyma: The brain parenchyma is normal in appearance. There is no hemorrhage, mass effect, or evidence of acute territorial ischemia by CT criteria. Capps-white matter differentiation is preserved. No extra-axial fluid collection is seen. Ventricles, sulci, cisterns: Normal in configuration. Intracranial vasculature: There is mild atherosclerotic calcification of the cavernous carotid and vertebral arteries. Calvarium: Unremarkable. Sinuses and mastoids: The visualized paranasal sinuses are clear. The mastoid air cells are well pneumatized. Orbits: The bony orbits are grossly intact. IMPRESSION: There is no hemorrhage, mass effect, or evidence of acute territorial ischemia by CT criteria. Findings were called to Dr. Pat in the emergency department at the time of interpretation. Electronically signed by: Larry Alexander M.D. 03/15/2019 6:[address] ANGIOGRAM OF THE BRAIN; CT ANGIOGRAM OF THE NECK CLINICAL HISTORY: Right arm weakness. COMPARISON STUDY: Unenhanced CT of the brain performed the same day 03/15/2019. TECHNIQUE: Following the IV administration of 119 of Optiray 320, CT angiogram of the head and neck was performed from the aortic arch to the vertex. Images are reviewed in the axial, sagittal, and coronal planes. 3-D MIPS images are created and assessed. IV contrast was administered without complication. All measurements were calculated based on NASCET criteria. A dose lowering technique was utilized adhering to the principles of ALARA. CT DOSE: 631.54 mGy.cm FINDINGS: Brain parenchyma: The brain parenchyma is normal in appearance. There is no hemorrhage, mass effect, or evidence of acute territorial ischemia by CT criteria. There is no evidence of enhancing mass lesion on the angiogram phase images. The ventricles, sulci, and cisterns are normal in configuration. Capps- white matter differentiation is preserved. No extra-axial fluid collection is seen. Thoracic aorta: Visualized portions of the thoracic aorta are normal in caliber. The aortic arch demonstrates standard 3-vessel anatomy. Right carotid arterial system: The right common carotid artery is widely patent, as are the right internal and external carotid arteries. Left carotid arterial system: The left common carotid artery is widely patent, as are the left internal and external carotid arteries. Vertebral arteries: The vertebral arteries are patent bilaterally and codominant. Subclavian arteries: Widely patent bilaterally. Intracranial vasculature: The internal carotid arteries are patent at the skull base, as are the anterior and middle cerebral arteries bilaterally. The vertebrobasilar system and posterior cerebral arteries are widely patent. The left vertebral artery is dominant. There is no aneurysm, high-grade stenosis, or focal vessel cut off seen throughout the intracranial circulation. Jugular veins: Patent bilaterally. Dural sinuses: Patent. Lung apices: Partially visualized upper lobe lung parenchyma appears clear. Soft tissues: The visualized pharyngeal soft tissues are normal in appearance noting angiographic phase technique. The oropharyngeal airway appears widely patent. The salivary and thyroid glands are normal in appearance. No cervical lymphadenopathy is seen. Skeletal structures: The calvarium appears intact. The cervical spine is within normal limits. No lytic or blastic lesion is seen. Orbits: The bony orbits are intact. Orbital contents are normal in appearance. Sinuses and mastoids: There is minimal mucosal thickening in the right maxillary antrum. The remaining paranasal sinuses are clear. The mastoid air cells are well pneumatized. IMPRESSION: 1. There is no hemorrhage, mass effect, or evidence of acute territorial ischemia by CT criteria noting angiographic phase technique. 2. Unremarkable CT angiogram of the brain 3. Unremarkable CT angiogram of the neck. Electronically signed by: Larry Alexander M.D. 03/15/2019 6:47 PM ECG Data Attestation: I personally reviewed and interpreted this ECG as follows: Indication: + other (stroke like symptoms) Rate (beats per minute): 90 Rhythm: + sinus rhythm ECG Intervals/blocks: + First degree AV block ECG Mentor: + Left axis deviation ECG ST segments: no ST depression and no ST elevation Blood Pressure Blood Pressure Findings: Elevated blood pressure Blood Pressure Disposition: further management by hospitalist AKI [place] This is a 53-year-old male who presents emergency department with waxing and waning symptoms of being unable to move his left arm. Due to the patient's complaint stroke alert was immediately initiated and the patient was sent for CAT scan as well as CTA of the head and neck. This does not show any evidence of acute CVA. He was started on magnesium here in the emergency department and given a fluid bolus. Due to the patient's past medical history including cardiomyopathy as well as coronary artery disease I did discuss the case with the [place] neurologist who recommended starting the patient on heparin with a heparin bolus and drip. Repeat examination revealed improvement in the patient's symptoms neurology recommended that the patient's magnesium be kept between 2 and 2.5. It is to here in the emergency department. The patient's laboratory results were reviewed. His creatinine is 1.7. I did discuss the case with the hospitalist service who agreed to meet the patient. Patient and family were in agreement with the treatment plan. Impression & Plan Left arm weakness Discharge Plan Visit Data *Final* Discharge Date/Time: 03/15/19 21:01 Chief Complaint: Stroke/CVA Symptoms Stated Complaint: L ARM PAIN, BLURRY VISION ED Provider: Luis Pat Discharge Problem: Left arm weakness Patient Disposition: Admitted As Inpatient Discharge Instructions Interventions: ED Discharge Assessment Last Done: 03/15/19 21:01 The scribe's documentation has been prepared under my direction and personally reviewed by me in its entirety. I confirm that the note above accurately reflects all work, treatment, procedures, and medical decision making performed by me.
--- NOTE | 2019-03-15 18:49 | CT Scan Report ---
CT ANGIOGRAM OF THE BRAIN; CT ANGIOGRAM OF THE NECK CLINICAL HISTORY: Right arm weakness. COMPARISON STUDY: Unenhanced CT of the brain performed the same day 03/15/2019. TECHNIQUE: Following the IV administration of 119 of Optiray 320, CT angiogram of the head and neck w as performed from the aortic arch to the vertex. Images are reviewed in the axial, sagittal, and jori nal planes. 3-D MIPS images are created and assessed. IV contrast was administered without complicati on. All measurements were calculated based on NASCET criteria. A dose lowering technique was utilize d adhering to the principles of ALARA. CT DOSE: 631.54 mGy.cm FINDINGS: Brain parenchyma: The brain parenchyma is normal in appearance. There is no hemorrhage, mass effect, or evidence of acute territorial ischemia by CT criteria. There is no evidence of enhancing mass lesi on on the angiogram phase images. The ventricles, sulci, and cisterns are normal in configuration. Gr ay-white matter differentiation is preserved. No extra-axial fluid collection is seen. Thoracic aorta: Visualized portions of the thoracic aorta are normal in caliber. The aortic arch demo nstrates standard 3-vessel anatomy. Right carotid arterial system: The right common carotid artery is widely patent, as are the right int ernal and external carotid arteries. Left carotid arterial system: The left common carotid artery is widely patent, as are the left event planning intern al and external carotid arteries. Vertebral arteries: The vertebral arteries are patent bilaterally and codominant. Subclavian arteries: Widely patent bilaterally. Intracranial vasculature: The internal carotid arteries are patent at the skull base, as are the ante rior and middle cerebral arteries bilaterally. The vertebrobasilar system and posterior cerebral shun alen are widely patent. The left vertebral artery is dominant. There is no aneurysm, high-grade steno sis, or focal vessel cut off seen throughout the intracranial circulation. Jugular veins: Patent bilaterally. Dural sinuses: Patent. Lung apices: Partially visualized upper lobe lung parenchyma appears clear. Soft tissues: The visualized pharyngeal soft tissues are normal in appearance noting angiographic pha se technique. The oropharyngeal airway appears widely patent. The salivary and thyroid glands are nor mal in appearance. No cervical lymphadenopathy is seen. Skeletal structures: The calvarium appears intact. The cervical spine is within normal limits. No lyt ic or blastic lesion is seen. Orbits: The bony orbits are intact. Orbital contents are normal in appearance. Sinuses and mastoids: There is minimal mucosal thickening in the right maxillary antrum. The remainin g paranasal sinuses are clear. The mastoid air cells are well pneumatized. IMPRESSION: 1. There is no hemorrhage, mass effect, or evidence of acute territorial ischemia by CT criteria noti ng angiographic phase technique. 2. Unremarkable CT angiogram of the brain 3. Unremarkable CT angiogram of the neck. Electronically signed by: Larry Alexander M.D. 03/15/2019 6:47 PM
[2019-03-15 18:51] LABS: Basophils # (auto) 0.02 K/uL (0-0.2); Basophils % (auto) 0.3 %; Eosinophils % (auto) 1.5 %; Hematocrit (blood only) 41.7 % (42-52); Hemoglobin 14.5 g/dL (14.0-18.0); Immature Granulocytes # (auto) 0.01 K/uL (0.00-0.02); Immature Granulocytes % (auto) 0.2 %; Lymphocytes # (auto) 1.96 K/uL (1.2-3.4); Lymphocytes % (auto) 29.8 %; Mean Corpuscular Hemoglobin 30.1 pg (25-34); Mean Corpuscular Hgb Conc 34.8 g/dL (32-36); Mean Corpuscular Volume 86.5 fL (80-100); Mean Platelet Volume 10.6 fL (7.4-10.4); Monocytes # (auto) 0.51 K/uL (0.11-0.59); Monocytes % (auto) 7.8 %; Neutrophils # (auto) 3.98 K/uL (1.4-6.5); Neutrophils % (auto) 60.4 %; Platelet Count 164 K/uL (130-400); RDW Coefficient of Variation 12.9 % (11.5-14.5); RDW Standard Deviation 41.2 fL (36.4-46.3); Red Blood Count 4.82 M/uL (4.7-6.1); White Blood Count 6.58 K/uL (4.8-10.8)
[2019-03-15 19:06] LABS: Partial Thromboplastin Ratio 0.9; Partial Thromboplastin Time 24.1 Seconds (21.0-31.0); Prothrombin Time 10.2 Seconds (9.0-12.0)
[2019-03-15 19:17] LABS: Alanine Aminotransferase 34 U/L (12-78); Albumin Level 3.5 gm/dl (3.4-5.0); Alkaline Phosphatase 72 U/L (45-117); Aspartate Aminotransferase 22 U/L (15-37); BUN Creatinine Ratio 16.9 (10-20); Bilirubin,Total 0.4 mg/dl (0.2-1); Blood Urea Nitrogen 30 mg/dl (7-18); Calcium 9.4 mg/dl (8.5-10.1); Carbon Dioxide 22 mmol/L (21-32); Chloride 104 mmol/L (98-107); Creatinine Clr Calc Pharmacy 59.3 ml/min; Est GFR (African American) 48.7; Globulin 3.7 gm/dl (2.5-4.0); Glucose 177 mg/dl (70-99); Potassium 4.1 mmol/L (3.5-5.1); Sodium 134 mmol/L (136-145); Total Protein 7.2 gm/dl (6.4-8.2); Troponin I < 0.015 ng/ml (0-0.045)
--- NOTE | 2019-03-15 19:41 | XRay Report ---
SINGLE VIEW CHEST CLINICAL HISTORY: Upper extremity weakness. FINDINGS: An AP, portable, upright chest radiograph is compared to study dated 12/14/2014. The heart is top normal for projection. The mediastinal contour is within normal limits. There is bibasilar atele ctasis. The lungs and pleural spaces are otherwise clear. No pneumothorax is seen. The bony thorax is grossly intact. IMPRESSION: No active disease in the chest. Electronically signed by: Larry Alexander M.D. 03/15/2019 7:40 PM
[2019-03-15] MEDS ORDERED: HEPARIN SOD (PORCINE) 1000 UNIT/ML 10 ML VIAL ONE (19:48)
[2019-03-15] MEDS: HEPARIN SODIUM/DEXTROSE 25,000 UNITS/500 ML BAG IV SCH (19:55)
[2019-03-15] MEDS ORDERED: LORazepam 2 MG/4 ML VIAL IV STA (20:06)
--- NOTE | 2019-03-15 20:43 | History & Physical Report ---
Date of Service March 15, 2019 Assessment & Plan (1) TIA (transient ischemic attack): 53yo M PHM poorly controlled diabetes, nonischemic CM, admitted for TIA. TIA -Admit to tele, strict bed rest overnight per telestroke recs -Heparin drip -CT head, CTA head/neck normal -MRI head ordered -Neuro consult appreciated -Echo ordered -Initiated patient on 40 lipitor and daily asa -Lipids recently obtained 03/06/19: Tchol 169, Tri 389, LDL 46, HDL 45. Will repeat in AM for quality measures. -Holding home metoprolol for permissive HTN -HbA1c on 03/06/19 of 14.6. Will repeat in AM. -Reorder Mag level in AM T2DM, poorly controlled, with neuropathy and nephropathy -Recent A1c 14.6; will repeat in AM. Had recently started trulicity -Per chart review, pt prev DNT metformin and was due to DC jardiance -Elevated microalbumin:cr. 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 -Will order lyme serology in light of neuropathy Non-ischemic CM -Repeating echo in AM -Echo 2017 EF 20% -Consider cardiology consult vs outpatient mgmt -Gentle rehydration for elevated Cr Code: Full Dispo: Admit obs to tele DVTP: heparin drip currently (2) Diabetes mellitus type 2 with neurological manifestations: (3) Type 2 diabetes mellitus with other diabetic kidney complication: (4) Diabetic autonomic neuropathy: (5) Nonischemic cardiomyopathy: (6) Left arm weakness: (7) Retinopathy: (8) Microalbuminuria: History of Present Illness Chief Complaint: Stroke-like symptoms Primary Care Provider: Tracey Ferreira DO Pt is a 53yo M PMH poorly controlled T2DM with nephropathy and neuropathy, nonischemic CM, who presents with stroke-like symptoms. He notes around 1530 on day of admission, he experienced an acute onset of L arm weakness, which resolved after about 30 minutes. 30 minutes later, L arm weakness returned with additional symptoms of aphasia and L facial paresthesia. At this point his drove him to the ER. By the time he arrived, most symptoms resolved aside from the L facial paresthesia. A stroke alert was called, and it was deemed he likely had an embolic event. CT head negative. Telestroke team noted he may have further symptoms overnight and to repeat consultation with any new symptoms. No tPA administered. Recommended strict bed rest, keeping magnesium between 2-2.5, and heparin drip with bolus. Allergies Allergy/AdvReac Type Severity Reaction Status Date / Time No Known Allergies Allergy Unverified 03/15/19 18:42 Home Medications Home Medications Medication Instructions Recorded Confirmed Type empagliflozin 10 mg tablet See Rx Instructions .ROUTE 02/15/19 03/15/19 Rx .COMPLEX #30 tablet metoprolol succinate 50 mg 75 mg PO DAILY tab 02/27/19 03/15/19 History tablet,extended release 24 hr dulaglutide 0.75 mg/0.5 mL 0.75 mg SQ WEEKLY #2 ml 03/06/19 03/15/19 Rx subcutaneous pen injector levocetirizine 5 mg tablet 5 mg PO DAILY #30 tab 03/06/19 03/15/19 Rx Past Med/Surg History Medical History Allergic rhinitis B12 deficiency Chronic rhinitis Coronary artery disease Diabetes Diabetes mellitus type 2 with neurological manifestations Diabetic autonomic neuropathy Gastritis History of diabetic ulcer of foot Left bundle branch block Microalbuminuria Nonischemic cardiomyopathy Retinopathy Type 2 diabetes mellitus with other diabetic kidney complication Surgical History S/P cardiac cath 2014 Family History Mother Diabetes Breast cancer Social History Preferred Language: Occitan Communication Ability: Effective Visual Impairment: No Limitations Hearing Ability: Normal Senior It Security Analyst Required: No Beliefs That Will Affect Care: None marital status: Current Living Situation: Spouse current occupational status: employed Other Information That Helps Us Care for You: No Feels Safe at Home: Yes Smoking Status: Unknown if ever smoked Hx Alcohol Use: No Hx Substance Use: No Dental Care, Regularly: Yes Physical Activity Frequency: 5-6 Times per Week Seatbelt Use: sometimes Sunscreen Use: No Review of Systems Review of Systems: All systems reviewed & are unremarkable except as noted in HPI & below Constitutional: + fatigue; no fever, no body aches and no malaise Eyes: no blind spots and no diplopia Ear, Nose, Mouth, Throat: + nasal discharge Respiratory: no cough and no dyspnea Cardiovascular: no chest pain Gastrointestinal: + heartburn Integumentary: no rash Neurologic: + localized weakness (LUE, resolved) and + paresthesia (L face); no gait abnormality, no falls, no lack of coordination, no dizziness and no confusion Endocrine: + polyuria Physical Exam Constitutional: WD/WN, vitals as above Eyes: PERRL, conjunctivae normal, anicteric sclerae normal visual flores by confrontation ENMT: external ear and nose normal, oropharynx normal Neck: normal visual inspection Respiratory: normal respiratory effort, lungs clear to auscultation Cardiovascular: RRR, no murmur, no edema Gastrointestinal (Abdomen): normal bowel sounds, soft, nontender, no hepatosplenomegaly Musculoskeletal: no cyanosis or clubbing, extremities motor strength 5/5 Skin: no rashes, warm and dry Neurologic: PERRL, EOMI, accommodation nl, no face palsy, no dysarthria CN's II-XI intact bilaterally (Sensation altered to soft touch on L face V2-V3 area), deep tendon reflexes 2+ bilaterally and moves all extremities; + abnormal touch/pain/proprioception (abnormal facial sensation V2-V3. Bilat peripheral neuropathy @b/l; dim sens) Speech / Cognition: normal speech Psychiatric: A+Ox3, euthymic affect Results & Data Vital Signs (Past 12 Hours) Vital Signs Temp Pulse Resp BP Pulse Ox 03/15/19 19:45 84 03/15/19 19:30 85 182/99 H 03/15/19 19:18 87 169/103 H 03/15/19 19:15 89 164/100 H 03/15/19 19:08 90 03/15/19 19:07 90 145/99 H 03/15/19 19:00 89 03/15/19 18:59 88 149/103 H 03/15/19 18:45 88 03/15/19 18:41 140 H 03/15/19 18:05 97.9 F 88 18 148/97 H 98 Laboratory Results 03/15/19 03/15/19 03/15/19 Range/Units 18:34 18:33 18:33 WBC (4.8-10.8) K/uL RBC (4.7-6.1) M/uL Hgb (14.0-18.0) g/dL POC Hgb 14.3 (14.0-18.0) g/dl Hct (42-52) % POC Hct 42 (42-52) % MCV (80-100) fL MCH (25-34) pg MCHC (32-36) g/dL RDW Std Deviation (36.4-46.3) fL RDW Coeff of Nicola (11.5-14.5) % Plt Count (130-400) K/uL MPV (7.4-10.4) fL Immature Gran % (Auto) % Neut % (Auto) % Lymph % (Auto) % Bulloch % (Auto) % Eos % (Auto) % Baso % (Auto) % Immature Gran # (Auto) (0.00-0.02) K/uL Neut # (Auto) (1.4-6.5) K/uL Lymph # (Auto) (1.2-3.4) K/uL Bulloch # (Auto) (0.11-0.59) K/uL Eos # (Auto) (0-0.5) K/uL Baso # (Auto) (0-0.2) K/uL PT (9.0-12.0) Seconds INR (0.9-1.1) APTT (21.0-31.0) Seconds PTT Ratio POC Sodium 135 (135-144) mEq/L Sodium 134 L (136-145) mmol/L POC Potassium 4.2 (3.3-5.0) mEq/L Potassium 4.1 (3.5-5.1) mmol/L POC Chloride 103 (101-112) mEq/L Chloride 104 (98-107) mmol/L Carbon Dioxide 22 (21-32) mmol/L POC Total CO2 24 (24-31) mEq/l Anion Gap 8.0 (3-11) POC Anion Gap 13.0 L (16-25) mmol/L POC BUN 29 H (7-18) mg/dl BUN 30 H (7-18) mg/dl Creatinine 1.79 H (0.6-1.4) mg/dl POC Creatinine 1.7 H (0.6-1.3) mg/dl Est Cr Clr Drug Dosing 59.3 ml/min Est GFR ( Amer) 48.7 Est GFR (Non-Af Amer) 42.0 BUN/Creatinine Ratio 16.9 (10-20) Glucose 177 H (70-99) mg/dl POC Glucose (70-99) POC Glucose (other) 180 H (70-99) mg/dl Calcium 9.4 (8.5-10.1) mg/dl POC Ioniz Calcium Alfa 1.19 (1.12-1.32) mmol/l Magnesium 2.0 (1.8-2.4) mg/dl Total Bilirubin 0.4 (0.2-1) mg/dl AST 22 (15-37) U/L ALT 34 (12-78) U/L Alkaline Phosphatase 72 (45-117) U/L CK-MB (CK-2) 4.0 H (0.5-3.6) ng/ml Troponin I < 0.015 (0-0.045) ng/ml Total Protein 7.2 (6.4-8.2) gm/dl Albumin 3.5 (3.4-5.0) gm/dl Globulin 3.7 (2.5-4.0) gm/dl Albumin/Globulin Ratio 1.0 (0.9-2) Homocysteine Pending 03/15/19 03/15/19 03/15/19 Range/Units 18:33 18:33 18:27 WBC 6.58 (4.8-10.8) K/uL RBC 4.82 (4.7-6.1) M/uL Hgb 14.5 (14.0-18.0) g/dL POC Hgb (14.0-18.0) g/dl Hct 41.7 L (42-52) % POC Hct (42-52) % MCV 86.5 (80-100) fL MCH 30.1 (25-34) pg MCHC 34.8 (32-36) g/dL RDW Std Deviation 41.2 (36.4-46.3) fL RDW Coeff of Nicola 12.9 (11.5-14.5) % Plt Count 164 (130-400) K/uL MPV 10.6 H (7.4-10.4) fL Immature Gran % (Auto) 0.2 % Neut % (Auto) 60.4 % Lymph % (Auto) 29.8 % Bulloch % (Auto) 7.8 % Eos % (Auto) 1.5 % Baso % (Auto) 0.3 % Immature Gran # (Auto) 0.01 (0.00-0.02) K/uL Neut # (Auto) 3.98 (1.4-6.5) K/uL Lymph # (Auto) 1.96 (1.2-3.4) K/uL Bulloch # (Auto) 0.51 (0.11-0.59) K/uL Eos # (Auto) 0.10 (0-0.5) K/uL Baso # (Auto) 0.02 (0-0.2) K/uL PT 10.2 (9.0-12.0) Seconds INR 1.0 (0.9-1.1) APTT 24.1 (21.0-31.0) Seconds PTT Ratio 0.9 POC Sodium (135-144) mEq/L Sodium (136-145) mmol/L POC Potassium (3.3-5.0) mEq/L Potassium (3.5-5.1) mmol/L POC Chloride (101-112) mEq/L Chloride (98-107) mmol/L Carbon Dioxide (21-32) mmol/L POC Total CO2 (24-31) mEq/l Anion Gap (3-11) POC Anion Gap (16-25) mmol/L POC BUN (7-18) mg/dl BUN (7-18) mg/dl Creatinine (0.6-1.4) mg/dl POC Creatinine (0.6-1.3) mg/dl Est Cr Clr Drug Dosing ml/min Est GFR ( Amer) Est GFR (Non-Af Amer) BUN/Creatinine Ratio (10-20) Glucose (70-99) mg/dl POC Glucose 163 H (70-99) POC Glucose (other) (70-99) mg/dl Calcium (8.5-10.1) mg/dl POC Ioniz Calcium Alfa (1.12-1.32) mmol/l Magnesium (1.8-2.4) mg/dl Total Bilirubin (0.2-1) mg/dl AST (15-37) U/L ALT (12-78) U/L Alkaline Phosphatase (45-117) U/L CK-MB (CK-2) (0.5-3.6) ng/ml Troponin I (0-0.045) ng/ml Total Protein (6.4-8.2) gm/dl Albumin (3.4-5.0) gm/dl Globulin (2.5-4.0) gm/dl Albumin/Globulin Ratio (0.9-2) Homocysteine Diagnostic Findings CT SCAN OF THE BRAIN WITHOUT IV CONTRAST CLINICAL HISTORY: Strokelike symptoms. COMPARISON STUDY: No priors. TECHNIQUE: Unenhanced axial CT scan of the brain is performed from the vertex to the skull base. A dose lowering technique was utilized adhering to the principles of ALARA. CT DOSE: 537.48 mGy.cm FINDINGS: Brain parenchyma: The brain parenchyma is normal in appearance. There is no hemorrhage, mass effect, or evidence of acute territorial ischemia by CT criteria. Capps-white matter differentiation is preserved. No extra-axial fluid collection is seen. Ventricles, sulci, cisterns: Normal in configuration. Intracranial vasculature: There is mild atherosclerotic calcification of the cavernous carotid and vertebral arteries. Calvarium: Unremarkable. Sinuses and mastoids: The visualized paranasal sinuses are clear. The mastoid air cells are well pneumatized. Orbits: The bony orbits are grossly intact. IMPRESSION: There is no hemorrhage, mass effect, or evidence of acute territorial ischemia by CT criteria. Findings were called to Dr. Pat in the emergency department at the time of interpretation. Electronically signed by: Larry Alexander M.D. 03/15/2019 6:[address] ANGIOGRAM OF THE BRAIN; CT ANGIOGRAM OF THE NECK CLINICAL HISTORY: Right arm weakness. COMPARISON STUDY: Unenhanced CT of the brain performed the same day 03/15/2019. TECHNIQUE: Following the IV administration of 119 of Optiray 320, CT angiogram of the head and neck was performed from the aortic arch to the vertex. Images are reviewed in the axial, sagittal, and coronal planes. 3-D MIPS images are created and assessed. IV contrast was administered without complication. All measurements were calculated based on NASCET criteria. A dose lowering technique was utilized adhering to the principles of ALARA. CT DOSE: 631.54 mGy.cm FINDINGS: Brain parenchyma: The brain parenchyma is normal in appearance. There is no hemorrhage, mass effect, or evidence of acute territorial ischemia by CT criteria. There is no evidence of enhancing mass lesion on the angiogram phase images. The ventricles, sulci, and cisterns are normal in configuration. Capps- white matter differentiation is preserved. No extra-axial fluid collection is seen. Thoracic aorta: Visualized portions of the thoracic aorta are normal in caliber. The aortic arch demonstrates standard 3-vessel anatomy. Right carotid arterial system: The right common carotid artery is widely patent, as are the right internal and external carotid arteries. Left carotid arterial system: The left common carotid artery is widely patent, as are the left internal and external carotid arteries. Vertebral arteries: The vertebral arteries are patent bilaterally and codominant. Subclavian arteries: Widely patent bilaterally. Intracranial vasculature: The internal carotid arteries are patent at the skull base, as are the anterior and middle cerebral arteries bilaterally. The vertebrobasilar system and posterior cerebral arteries are widely patent. The left vertebral artery is dominant. There is no aneurysm, high-grade stenosis, or focal vessel cut off seen throughout the intracranial circulation. Jugular veins: Patent bilaterally. Dural sinuses: Patent. Lung apices: Partially visualized upper lobe lung parenchyma appears clear. Soft tissues: The visualized pharyngeal soft tissues are normal in appearance noting angiographic phase technique. The oropharyngeal airway appears widely patent. The salivary and thyroid glands are normal in appearance. No cervical lymphadenopathy is seen. Skeletal structures: The calvarium appears intact. The cervical spine is within normal limits. No lytic or blastic lesion is seen. Orbits: The bony orbits are intact. Orbital contents are normal in appearance. Sinuses and mastoids: There is minimal mucosal thickening in the right maxillary antrum. The remaining paranasal sinuses are clear. The mastoid air cells are well pneumatized. IMPRESSION: 1. There is no hemorrhage, mass effect, or evidence of acute territorial ischemia by CT criteria noting angiographic phase technique. 2. Unremarkable CT angiogram of the brain 3. Unremarkable CT angiogram of the neck. Code Status & VTE Plan Code Status full Supervising Physician Co-Signing Physician Notes Patient was seen and examined by me personally. I reviewed the chart, the orders and discussed the case in detail with Dr. Harriet Mantilla MD. I read this H&P and agree with its contents to entirety. Resident Activity Tracking Resident Involvement: Resident Care Provided Care Provided: Adult Hospital Medicine
--- NOTE | 2019-03-15 21:37 | Magnetic Resonance Report ---
MRI OF THE BRAIN WITHOUT IV CONTRAST CLINICAL HISTORY: Left upper extremity weakness. COMPARISON STUDY: CT and CT angiogram of the brain performed the same day 03/15/2019. TECHNIQUE: MRI of the brain was performed utilizing various T1 and T2-weighted sequences in the axial , sagittal, and coronal planes. IV contrast was not administered for this examination. The examinatio n is degraded by motion artifact. FINDINGS: Brain parenchyma: There is a faint subcentimeter focus of restricted diffusion identified within the posterior right frontal lobe cortex seen on image #18. No additional foci of restricted diffusion are identified. There is minimal microangiopathic change. There is no hemorrhage or mass effect. Capps-w bryan matter differentiation is preserved. No extra-axial fluid collection is seen. The cerebellar ton sils are normal in configuration. Ventricles, sulci, and cisterns: Normal in configuration. Pituitary and sella: Unremarkable. Intracranial vasculature: Normal flow voids are maintained at the skull base. Orbits: The bony orbits are grossly intact. Orbital contents are normal in appearance. Sinuses and mastoids: Clear. Calvarium: Unremarkable. Cervical cord: Partially visualized cervical spinal cord is normal in morphology and signal intensity . IMPRESSION: 1. There is a faint subcentimeter focus of restricted diffusion identified within the posterior right frontal lobe cortex. This likely represents a small focus of acute to subacute ischemia. 2. No additional foci of acute ischemia are identified. 3. There is no hemorrhage or mass effect. Electronically signed by: Larry Alexander M.D. 03/15/2019 9:35 PM
[2019-03-15] MEDS ORDERED: PHARMACIST DISCHARGE MED REC CONSULT PRN (22:00)
[2019-03-15] MEDS ORDERED: ONDANSETRON INJ 2 MG/ML 2 ML VIAL IV PRN ×2 (22:00)
[2019-03-15] MEDS ORDERED: DEXTROSE 50% 50 ML SYRINGE IV PRN (22:00)
[2019-03-15] MEDS ORDERED: CARBOHYDRATES FOR HYPOGLYCEMIA PO PRN (22:00)
[2019-03-15] MEDS ORDERED: GLUCAGON FOR INJ 1 MG VIAL SQ PRN (22:00)
[2019-03-15] MEDS ORDERED: MAGNESIUM HYDROXIDE SUSP 30 ML UDC PO PRN ×2 (22:00)
[2019-03-15] MEDS ORDERED: POLYETHYLENE (MIRALAX) 17 GM PACK PO PRN ×2 (22:00)
[2019-03-15] MEDS ORDERED: GLUCOSE 10 TABS/TUBE PO PRN (22:00)
[2019-03-15] MEDS ORDERED: ALUMINUM/MAGNESIUM SUSP 30 ML UDC PO PRN ×2 (22:00)
[2019-03-15] MEDS ORDERED: GLUCOSE 40% GEL 15 GM TUBE PO PRN (22:00)
[2019-03-15] MEDS ORDERED: ACETAMINOPHEN 325 MG TAB PO PRN ×2 (22:00)
[2019-03-15] MEDS ORDERED: SODIUM CHLORIDE 0.9% 1000ML 1,000 ML IV SCH (22:00)
[2019-03-15] MEDS: SODIUM CHLORIDE 0.9% 1000ML 1,000 ML IV SCH (22:46)
[2019-03-15] MEDS: INSULIN GLARGINE SOLOSTAR 100 UNITS/ML 3 ML PEN SC SCH (22:47)
[2019-03-15] MEDS: INSULIN ASPART 100 UNITS/ML 3 ML PEN SC SCH (22:49)
[2019-03-16 02:19] LABS: Basophils # (auto) 0.02 K/uL (0-0.2); Basophils % (auto) 0.3 %; Eosinophils # (auto) 0.12 K/uL (0-0.5); Eosinophils % (auto) 2.1 %; Hemoglobin 14.1 g/dL (14.0-18.0); Immature Granulocytes # (auto) 0.01 K/uL (0.00-0.02); Immature Granulocytes % (auto) 0.2 %; Lymphocytes # (auto) 2.31 K/uL (1.2-3.4); Lymphocytes % (auto) 39.6 %; Mean Corpuscular Hemoglobin 29.6 pg (25-34); Mean Corpuscular Hgb Conc 34.4 g/dL (32-36); Mean Corpuscular Volume 86.1 fL (80-100); Mean Platelet Volume 10.4 fL (7.4-10.4); Monocytes # (auto) 0.57 K/uL (0.11-0.59); Monocytes % (auto) 9.8 %; Platelet Count 151 K/uL (130-400); Red Blood Count 4.76 M/uL (4.7-6.1); White Blood Count 5.83 K/uL (4.8-10.8)
[2019-03-16 02:35] LABS: BUN Creatinine Ratio 17.6 (10-20); Calcium 8.9 mg/dl (8.5-10.1); Creatinine Clr Calc Pharmacy 68.3 ml/min; Magnesium 2.2 mg/dl (1.8-2.4); Potassium 3.8 mmol/L (3.5-5.1)
[2019-03-16 02:39] LABS: Partial Thromboplastin Ratio 2.3
[2019-03-16 03:27] LABS: Partial Thromboplastin Time 63.6 Seconds (21.0-31.0)
[2019-03-16 03:37] LABS: Lyme Ab IgG w/WB Rflx Negative (Negative); Lyme Ab IgM w/WB Rflx Negative (Negative)
[2019-03-16 06:06] LABS: Estimated Average Glucose 361 mg/dl; Hemoglobin A1C 14.2 % (4.5-5.6)
--- NOTE | 2019-03-16 06:40 | Billing Data ---
Coding Level of Care Code 54402 OBS Care - Level 3
[2019-03-16] MEDS ORDERED: PERFLUTREN LIPID MICROSPHERE (DEFINITY) IV ONE (07:16)
[2019-03-16] MEDS: ASPIRIN 81 MG ECTAB PO SCH (07:59)
[2019-03-16] MEDS: INSULIN GLARGINE SOLOSTAR 100 UNITS/ML 3 ML PEN SC SCH ×2 (07:59→22:13)
[2019-03-16] MEDS: ATORVASTATIN 40 MG TAB PO SCH (07:59)
[2019-03-16] MEDS: INSULIN ASPART 100 UNITS/ML 3 ML PEN SC SCH ×4 (08:01→22:13)
--- NOTE | 2019-03-16 10:33 | Neurology Consultation ---
Date of Consultation March 16, 2019 Assessment & Plan (1) Stroke: Small acute to subacute ischemic stroke within the right frontal lobe cortex, presenting with an episode of weakness affecting the left upper extremity and associated numbness affecting the left arm and face as well. The symptoms have completely resolved. This patient did present with some speech difficulty as well, possibly aphasia, although not entirely clear. Aphasia would typically localize to the left MCA territory. There was no evidence of stroke within the left cerebral hemisphere on MRI. The potentially multifocal symptomatology in the context of this patient's history of low ejection fraction could be consistent with an embolic stroke. Follow-up with results of echocardiogram. Would consider anticoagulation if patient's ejection fraction remains significantly reduced. He should also continue with daily low-dose aspirin for stroke risk modification, especially in light of his history of diabetes mellitus, which will need improved control on an ongoing basis. Agree with atorvastatin as ordered. Cessation of chewing tobacco also needs to be stressed. No further immediate neurological recommendations. May need to consider cardiology consultation depending on results of echocardiography and for another opinion regarding the appropriateness of anticoagulation, if this patient's ejection fraction is severely reduced. History of Present Illness Reason for Consultation: Stroke Requesting Physician: Harriet Mantlila MD Attending Physician: Evon Lagunas MD History of Present Illness The patient is a 53-year old male with a chief complaint of left upper extremity weakness that began acutely yesterday afternoon with associated numbness and tingling of the left upper limb and left side of the face. He also recalls having some associated difficulty with word finding at that time. He is right- handed. Upon further questioning, he also complains of some difficulty with his vision, more so off to the left side. The symptoms persisted for about 30 minutes and had resolved by the time he was evaluated in the emergency department, about 2-1/2 hours after symptom onset, other than some numbness and tingling along the left side of the face. He denies a history of stroke or TIA although he does have a past medical history of poorly controlled diabetes mellitus, diabetic peripheral neuropathy, and an ischemic cardiomyopathy with a reported ejection fraction of 20% based on an echocardiogram done in 2017. He uses chewing tobacco. He was not taking daily aspirin as an outpatient. He did have a tele-stroke consultation with while in the emergency department. There was some concern regarding the possibility of embolic stroke and a heparin drip has been started. He was not administered TPA. This morning, the patient reports that his symptoms are completely resolved, no recurrence. Additional details as below. Allergies Allergy/AdvReac Type Severity Reaction Status Date / Time No Known Allergies Allergy Unverified 03/15/19 18:42 Home Medications Home Medications Medication Instructions Recorded Confirmed Type empagliflozin 10 mg tablet See Rx Instructions .ROUTE 02/15/19 03/15/19 Rx .COMPLEX #30 tablet metoprolol succinate 50 mg 75 mg PO DAILY tab 02/27/19 03/15/19 History tablet,extended release 24 hr dulaglutide 0.75 mg/0.5 mL 0.75 mg SQ WEEKLY #2 ml 03/06/19 03/15/19 Rx subcutaneous pen injector levocetirizine 5 mg tablet 5 mg PO DAILY #30 tab 03/06/19 03/15/19 Rx Patient History Medical History Allergic rhinitis B12 deficiency Chronic rhinitis Coronary artery disease Diabetes Diabetes mellitus type 2 with neurological manifestations Diabetic autonomic neuropathy Gastritis History of diabetic ulcer of foot Left bundle branch block Microalbuminuria Nonischemic cardiomyopathy Retinopathy Type 2 diabetes mellitus with other diabetic kidney complication Surgical History S/P cardiac cath 2015 Family History Mother Diabetes Breast cancer Social History Preferred Language: Polish Communication Ability: Effective Visual Impairment: No Limitations Hearing Ability: Normal [facility] Required: No Beliefs That Will Affect Care: None marital status: Current Living Situation: Spouse current occupational status: employed Other Information That Helps Us Care for You: No Feels Safe at Home: Yes Smoking Status: Unknown if ever smoked Hx Alcohol Use: No Hx Substance Use: No Dental Care, Regularly: Yes Physical Activity Frequency: 5-6 Times per Week Seatbelt Use: sometimes Sunscreen Use: No Review of Systems Constitutional: no fever and no chills Eyes: as per Subjective / HPI Ear, Nose, Mouth, Throat: no tinnitus and no hearing loss Respiratory: no cough and no dyspnea Cardiovascular: no chest pain and no palpitations Gastrointestinal: no nausea and no vomiting Genitourinary: no urinary incontinence Musculoskeletal: no myalgia Integumentary: no rash and no lesions Neurologic: as per Subjective / HPI, + localized weakness, + loss of sensation, + paresthesia and + headache(s) Psychiatric: no depression and no anxiety Hematologic / Lymphatic: no easy bleeding and no easy bruising Physical Exam Physical Exam: The patient is a well-developed, well-nourished middle-aged elderly male. He is alert and fully oriented. Recent and remote memory intact. Attention and concentration normal. Patient exhibits a normal spontaneous speech pattern. He is able to name objects and repeat phrases. Patient exhibits an age-appropriate fund of knowledge and normal comprehension of vocabulary. Visual flores full to confrontation. Visual acuity normal. Pupils equal round reactive to light and accommodation. Eye movements normal. There is no nystagmus, ptosis, or ophthalmoplegia. Facial sensation intact for both the left and right side of the face. There is no facial droop. Hearing intact. Palate elevates to midline. Shoulder shrug intact. Tongue protrudes to midline. There is diminished sensation to temperature and vibration at the ankles bilaterally. Sensation for the upper limbs intact. Deep tendon reflexes are intact and symmetrical for the arms and legs although absent at the Achilles tendons bilaterally. Plantar responses downgoing bilaterally. There is no dysdiadochokinesia or dysmetria [id number] or [id number] bilaterally. Ophthalmoscopic examination reveals normal-appearing optic disks and posterior segments. No papilledema or hemorrhages. Carotid pulses normal bilaterally, no bruits to auscultation. Gait and station normal. Patient exhibits normal muscle strength and tone for all 4 limbs. No atrophy. No abnormal movements observed. Results & Data Vital Signs (Past 12 Hours) Vital Signs Temp Pulse Pulse Resp BP Pulse Ox 03/16/19 07:31 36.5 C 88 18 135/88 98 03/16/19 04:10 36.4 C L 86 19 120/84 97 03/15/19 23:59 77 03/15/19 23:31 36.5 C 82 18 137/84 96 Laboratory Results WBC 5.83, hemoglobin 14.1, hematocrit 41.0, platelet count 151, sodium 140, potassium 3.8, BUN 27, creatinine 1.55, glucose 141, hemoglobin A1c 14.2, magnesium 2.2, triglycerides 111, cholesterol 131, LDL 58, VLDL 22, HDL [address] of the head completed yesterday is negative for hemorrhage or acute process. I reviewed the images as well as the radiologist interpretation of this test. CT angiography of the head and neck completed yesterday unremarkable. No evidence for stenosis, occlusion, dissection, aneurysm, or other vascular lesion. MRI of the brain completed yesterday reveals a faint subcentimeter focus of restricted diffusion within the posterior right frontal lobe cortex likely consistent with a small focus of acute to subacute ischemia. No additional abnormalities on DWI identified. I reviewed the images as well as the radiologist interpretation of this test. Electrocardiogram reveals a sinus rhythm with first-degree AV block, 90 bpm.
[2019-03-16] MEDS: HEPARIN SODIUM/DEXTROSE 25,000 UNITS/500 ML BAG IV SCH (11:42)
[2019-03-16] MEDS: SODIUM CHLORIDE 0.9% 1000ML 1,000 ML IV SCH (17:54)
--- NOTE | 2019-03-16 18:07 | Hospitalist Progress Note ---
Date of Service March 16, 2019 Assessment & Plan (1) Stroke: - Brain MRI showed posterior right frontal lobe cortex CVA. - Head CT, Head/Neck CTA were negative. - Echo showed improvement in EF but did note thickened aortic valve -- concern for bacterial endocarditis. Will consult cardiology for evaluation and obtain blood cultures. - No evidence of arrhythmias noted on telemetry. - Stroke protocol with neuro checks. - Currently on Heparin drip per telestroke recs at [facility]. - Severely uncontrolled DM -- hgb A1C >14; met with perinatal educator, will f/u closely with Dr. 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 Currently on Trulicity once weekly injection. - ASA 81 mg daily and Atorvastatin 40 mg daily. - PT/OT - stable for discharge to home once medically cleared. (2) Type 2 diabetes mellitus with other diabetic kidney complication: - A1C is 14.2; was previously 14.6 in Feb 2019. - Recently started Trulicity once weekly injection. - Met with the perinatal educator today; pt. 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 Will continue home injection but follow up closely with Dr. Ferreira to discuss completing exception forms as outpatient. Will also need to follow up with endocrinology at next available appt (currently scheduled in May 2019) - Carb consistent diet. (3) Microalbuminuria: - In setting of diabetic nephropathy. (4) Diabetic autonomic neuropathy: - Type II DM control as noted above. (5) Nonischemic cardiomyopathy: - Previous EF in Mar 2017 showed EF 20-25%; had normal cath at that time. - Repeat EF today showed EF 35-40%, regional wall motion abnormalities and thickened aortic valve (?vegetation, see above) - Has not tolerated ACEI in past; continue beta maria isabel as prescribed. (6) Left bundle branch block: - Known diagnosis; previous cardiac cath was negative. (7) Retinopathy: - In setting of uncontrolled diabetes. 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 - Creatinine is likely at baseline. - Monitor renal function. Dispo: PCU/tele; cardiology consult in the AM for ?vegetation. Supervising Physician Co-Signing Physician Notes PA Supervision Note: I did not personally see or examine the patient today, but I verified all tee points of PA DelGrosso's assessment and plan with the following exceptions/additions: Patient here with CVA ischemic, likely thromboembolic with depressed EF and AV vegetation Check BCxs for SBE Consult Cardiology and may need OK Continue anticoagulation Subjective Pt. feels well overall today. Denies further episodes of aphasia, arm/leg weakness. Does have mild vision changes in left eye, denies headache. Review of Systems 2 Review of Systems: All systems reviewed & are unremarkable except as noted in HPI & below Constitutional: no fever, no chills, no fatigue and no weakness Eyes: + worsening vision Respiratory: no cough, no dyspnea and no dyspnea on exertion Cardiovascular: no chest pain, no palpitations and no edema Gastrointestinal: no abdominal pain, no nausea, no vomiting and no constipation Genitourinary: no difficulty urinating Musculoskeletal: no back pain and no joint pain Physical Exam Physical Exam: General: Resting comfortably HEENT: NC/AT; PERRLA with EOMI; Burr conjunctiva, MMM. No erythema of posterior pharynx Neck: Supple and nontender Cardiac: RRR Lungs: CTA bilaterally Abdomen: Bowel normoactive X 4; Nontender to palpation Extremities: Warm. No edema present Neuro: No focal weakness Skin: No rash Results & Data Vital Signs (Past 12 Hours) Vital Signs Temp Pulse Resp BP Pulse Ox 03/16/19 15:06 37.0 C 92 H 17 131/91 98 03/16/19 11:51 36.7 C 101 H 17 115/81 99 03/16/19 07:31 36.5 C 88 18 135/88 98 Laboratory Results 03/16/19 03/16/19 03/16/19 Range/Units 15:58 11:29 07:29 WBC (4.8-10.8) K/uL RBC (4.7-6.1) M/uL Hgb (14.0-18.0) g/dL POC Hgb (14.0-18.0) g/dl Hct (42-52) % POC Hct (42-52) % MCV (80-100) fL MCH (25-34) pg MCHC (32-36) g/dL RDW Std Deviation (36.4-46.3) fL RDW Coeff of Nicola (11.5-14.5) % Plt Count (130-400) K/uL MPV (7.4-10.4) fL Immature Gran % (Auto) % Neut % (Auto) % Lymph % (Auto) % [place] % (Auto) % Eos % (Auto) % Baso % (Auto) % Immature Gran # (Auto) (0.00-0.02) K/uL Neut # (Auto) (1.4-6.5) K/uL Lymph # (Auto) (1.2-3.4) K/uL [place] # (Auto) (0.11-0.59) K/uL Eos # (Auto) (0-0.5) K/uL Baso # (Auto) (0-0.2) K/uL PT (9.0-12.0) Seconds INR (0.9-1.1) APTT (21.0-31.0) Seconds PTT Ratio POC Sodium (135-144) mEq/L Sodium (136-145) mmol/L POC Potassium (3.3-5.0) mEq/L Potassium (3.5-5.1) mmol/L POC Chloride (101-112) mEq/L Chloride (98-107) mmol/L Carbon Dioxide (21-32) mmol/L POC Total CO2 (24-31) mEq/l Anion Gap (3-11) POC Anion Gap (16-25) mmol/L POC BUN (7-18) mg/dl BUN (7-18) mg/dl Creatinine (0.6-1.4) mg/dl POC Creatinine (0.6-1.3) mg/dl Est Cr Clr Drug Dosing ml/min Est GFR ( Amer) Est GFR (Non-Af Amer) BUN/Creatinine Ratio (10-20) Glucose (70-99) mg/dl POC Glucose 108 H 125 H 143 H (70-99) POC Glucose (other) (70-99) mg/dl Estimat Average Glucose mg/dl Hemoglobin A1c (4.5-5.6) % Calcium (8.5-10.1) mg/dl POC Ioniz Calcium Alfa (1.12-1.32) mmol/l Magnesium (1.8-2.4) mg/dl Total Bilirubin (0.2-1) mg/dl AST (15-37) U/L ALT (12-78) U/L Alkaline Phosphatase (45-117) U/L CK-MB (CK-2) (0.5-3.6) ng/ml Troponin I (0-0.045) ng/ml Total Protein (6.4-8.2) gm/dl Albumin (3.4-5.0) gm/dl Globulin (2.5-4.0) gm/dl Albumin/Globulin Ratio (0.9-2) Triglycerides (0-150) mg/dl Cholesterol (0-200) mg/dl LDL Cholesterol, Calc mg/dl VLDL Cholesterol, Calc mg/dl HDL Cholesterol mg/dl Cholesterol/HDL Ratio Homocysteine Lyme Disease IgG Ab (Negative) Lyme Disease IgM Ab (Negative) Hepatitis C Ab Screen (Neg) 03/16/19 03/16/19 03/16/19 Range/Units 02:07 02:07 02:07 WBC 5.83 (4.8-10.8) K/uL RBC 4.76 (4.7-6.1) M/uL Hgb 14.1 (14.0-18.0) g/dL POC Hgb (14.0-18.0) g/dl Hct 41.0 L (42-52) % POC Hct (42-52) % MCV 86.1 (80-100) fL MCH 29.6 (25-34) pg MCHC 34.4 (32-36) g/dL RDW Std Deviation 41.0 (36.4-46.3) fL RDW Coeff of Nicola 13.0 (11.5-14.5) % Plt Count 151 (130-400) K/uL MPV 10.4 (7.4-10.4) fL Immature Gran % (Auto) 0.2 % Neut % (Auto) 48.0 % Lymph % (Auto) 39.6 % [place] % (Auto) 9.8 % Eos % (Auto) 2.1 % Baso % (Auto) 0.3 % Immature Gran # (Auto) 0.01 (0.00-0.02) K/uL Neut # (Auto) 2.80 (1.4-6.5) K/uL Lymph # (Auto) 2.31 (1.2-3.4) K/uL [place] # (Auto) 0.57 (0.11-0.59) K/uL Eos # (Auto) 0.12 (0-0.5) K/uL Baso # (Auto) 0.02 (0-0.2) K/uL PT (9.0-12.0) Seconds INR (0.9-1.1) APTT (21.0-31.0) Seconds PTT Ratio POC Sodium (135-144) mEq/L Sodium 140 (136-145) mmol/L POC Potassium (3.3-5.0) mEq/L Potassium 3.8 (3.5-5.1) mmol/L POC Chloride (101-112) mEq/L Chloride 111 H (98-107) mmol/L Carbon Dioxide 23 (21-32) mmol/L POC Total CO2 (24-31) mEq/l Anion Gap 6.0 (3-11) POC Anion Gap (16-25) mmol/L POC BUN (7-18) mg/dl BUN 27 H (7-18) mg/dl Creatinine 1.55 H (0.6-1.4) mg/dl POC Creatinine (0.6-1.3) mg/dl Est Cr Clr Drug Dosing 68.3 ml/min Est GFR ( Amer) 58.0 Est GFR (Non-Af Amer) 50.0 BUN/Creatinine Ratio 17.6 (10-20) Glucose 141 H (70-99) mg/dl POC Glucose (70-99) POC Glucose (other) (70-99) mg/dl Estimat Average Glucose mg/dl Hemoglobin A1c (4.5-5.6) % Calcium 8.9 (8.5-10.1) mg/dl POC Ioniz Calcium Alfa (1.12-1.32) mmol/l Magnesium 2.2 (1.8-2.4) mg/dl Total Bilirubin (0.2-1) mg/dl AST (15-37) U/L ALT (12-78) U/L Alkaline Phosphatase (45-117) U/L CK-MB (CK-2) (0.5-3.6) ng/ml Troponin I (0-0.045) ng/ml Total Protein (6.4-8.2) gm/dl Albumin (3.4-5.0) gm/dl Globulin (2.5-4.0) gm/dl Albumin/Globulin Ratio (0.9-2) Triglycerides 111 (0-150) mg/dl Cholesterol 131 (0-200) mg/dl LDL Cholesterol, Calc 58 mg/dl VLDL Cholesterol, Calc 22 mg/dl HDL Cholesterol 51 mg/dl Cholesterol/HDL Ratio 3 Homocysteine Lyme Disease IgG Ab Negative (Negative) Lyme Disease IgM Ab Negative (Negative) Hepatitis C Ab Screen (Neg) 03/16/19 03/16/19 03/15/19 Range/Units 02:07 02:07 22:12 WBC (4.8-10.8) K/uL RBC (4.7-6.1) M/uL Hgb (14.0-18.0) g/dL POC Hgb (14.0-18.0) g/dl Hct (42-52) % POC Hct (42-52) % MCV (80-100) fL MCH (25-34) pg MCHC (32-36) g/dL RDW Std Deviation (36.4-46.3) fL RDW Coeff of Nicola (11.5-14.5) % Plt Count (130-400) K/uL MPV (7.4-10.4) fL Immature Gran % (Auto) % Neut % (Auto) % Lymph % (Auto) % [place] % (Auto) % Eos % (Auto) % Baso % (Auto) % Immature Gran # (Auto) (0.00-0.02) K/uL Neut # (Auto) (1.4-6.5) K/uL Lymph # (Auto) (1.2-3.4) K/uL [place] # (Auto) (0.11-0.59) K/uL Eos # (Auto) (0-0.5) K/uL Baso # (Auto) (0-0.2) K/uL PT (9.0-12.0) Seconds INR (0.9-1.1) APTT 63.6 H* (21.0-31.0) Seconds PTT Ratio 2.3 POC Sodium (135-144) mEq/L Sodium (136-145) mmol/L POC Potassium (3.3-5.0) mEq/L Potassium (3.5-5.1) mmol/L POC Chloride (101-112) mEq/L Chloride (98-107) mmol/L Carbon Dioxide (21-32) mmol/L POC Total CO2 (24-31) mEq/l Anion Gap (3-11) POC Anion Gap (16-25) mmol/L POC BUN (7-18) mg/dl BUN (7-18) mg/dl Creatinine (0.6-1.4) mg/dl POC Creatinine (0.6-1.3) mg/dl Est Cr Clr Drug Dosing ml/min Est GFR ( Amer) Est GFR (Non-Af Amer) BUN/Creatinine Ratio (10-20) Glucose (70-99) mg/dl POC Glucose (70-99) POC Glucose (other) (70-99) mg/dl Estimat Average Glucose 361 mg/dl Hemoglobin A1c 14.2 H (4.5-5.6) % Calcium (8.5-10.1) mg/dl POC Ioniz Calcium Alfa (1.12-1.32) mmol/l Magnesium (1.8-2.4) mg/dl Total Bilirubin (0.2-1) mg/dl AST (15-37) U/L ALT (12-78) U/L Alkaline Phosphatase (45-117) U/L CK-MB (CK-2) (0.5-3.6) ng/ml Troponin I (0-0.045) ng/ml Total Protein (6.4-8.2) gm/dl Albumin (3.4-5.0) gm/dl Globulin (2.5-4.0) gm/dl Albumin/Globulin Ratio (0.9-2) Triglycerides (0-150) mg/dl Cholesterol (0-200) mg/dl LDL Cholesterol, Calc mg/dl VLDL Cholesterol, Calc mg/dl HDL Cholesterol mg/dl Cholesterol/HDL Ratio Homocysteine Lyme Disease IgG Ab (Negative) Lyme Disease IgM Ab (Negative) Hepatitis C Ab Screen Neg (Neg) 03/15/19 03/15/19 03/15/19 Range/Units 22:06 18:34 18:33 WBC (4.8-10.8) K/uL RBC (4.7-6.1) M/uL Hgb (14.0-18.0) g/dL POC Hgb 14.3 (14.0-18.0) g/dl Hct (42-52) % POC Hct 42 (42-52) % MCV (80-100) fL MCH (25-34) pg MCHC (32-36) g/dL RDW Std Deviation (36.4-46.3) fL RDW Coeff of Nicola (11.5-14.5) % Plt Count (130-400) K/uL MPV (7.4-10.4) fL Immature Gran % (Auto) % Neut % (Auto) % Lymph % (Auto) % [place] % (Auto) % Eos % (Auto) % Baso % (Auto) % Immature Gran # (Auto) (0.00-0.02) K/uL Neut # (Auto) (1.4-6.5) K/uL Lymph # (Auto) (1.2-3.4) K/uL [place] # (Auto) (0.11-0.59) K/uL Eos # (Auto) (0-0.5) K/uL Baso # (Auto) (0-0.2) K/uL PT (9.0-12.0) Seconds INR (0.9-1.1) APTT (21.0-31.0) Seconds PTT Ratio POC Sodium 135 (135-144) mEq/L Sodium (136-145) mmol/L POC Potassium 4.2 (3.3-5.0) mEq/L Potassium (3.5-5.1) mmol/L POC Chloride 103 (101-112) mEq/L Chloride (98-107) mmol/L Carbon Dioxide (21-32) mmol/L POC Total CO2 24 (24-31) mEq/l Anion Gap (3-11) POC Anion Gap 13.0 L (16-25) mmol/L POC BUN 29 H (7-18) mg/dl BUN (7-18) mg/dl Creatinine (0.6-1.4) mg/dl POC Creatinine 1.7 H (0.6-1.3) mg/dl Est Cr Clr Drug Dosing ml/min Est GFR ( Amer) Est GFR (Non-Af Amer) BUN/Creatinine Ratio (10-20) Glucose (70-99) mg/dl POC Glucose 112 H (70-99) POC Glucose (other) 180 H (70-99) mg/dl Estimat Average Glucose mg/dl Hemoglobin A1c (4.5-5.6) % Calcium (8.5-10.1) mg/dl POC Ioniz Calcium Alfa 1.19 (1.12-1.32) mmol/l Magnesium (1.8-2.4) mg/dl Total Bilirubin (0.2-1) mg/dl AST (15-37) U/L ALT (12-78) U/L Alkaline Phosphatase (45-117) U/L CK-MB (CK-2) (0.5-3.6) ng/ml Troponin I (0-0.045) ng/ml Total Protein (6.4-8.2) gm/dl Albumin (3.4-5.0) gm/dl Globulin (2.5-4.0) gm/dl Albumin/Globulin Ratio (0.9-2) Triglycerides (0-150) mg/dl Cholesterol (0-200) mg/dl LDL Cholesterol, Calc mg/dl VLDL Cholesterol, Calc mg/dl HDL Cholesterol mg/dl Cholesterol/HDL Ratio Homocysteine Pending Lyme Disease IgG Ab (Negative) Lyme Disease IgM Ab (Negative) Hepatitis C Ab Screen (Neg) 03/15/19 03/15/19 03/15/19 Range/Units 18:33 18:33 18:33 WBC 6.58 (4.8-10.8) K/uL RBC 4.82 (4.7-6.1) M/uL Hgb 14.5 (14.0-18.0) g/dL POC Hgb (14.0-18.0) g/dl Hct 41.7 L (42-52) % POC Hct (42-52) % MCV 86.5 (80-100) fL MCH 30.1 (25-34) pg MCHC 34.8 (32-36) g/dL RDW Std Deviation 41.2 (36.4-46.3) fL RDW Coeff of Nicola 12.9 (11.5-14.5) % Plt Count 164 (130-400) K/uL MPV 10.6 H (7.4-10.4) fL Immature Gran % (Auto) 0.2 % Neut % (Auto) 60.4 % Lymph % (Auto) 29.8 % [place] % (Auto) 7.8 % Eos % (Auto) 1.5 % Baso % (Auto) 0.3 % Immature Gran # (Auto) 0.01 (0.00-0.02) K/uL Neut # (Auto) 3.98 (1.4-6.5) K/uL Lymph # (Auto) 1.96 (1.2-3.4) K/uL [place] # (Auto) 0.51 (0.11-0.59) K/uL Eos # (Auto) 0.10 (0-0.5) K/uL Baso # (Auto) 0.02 (0-0.2) K/uL PT 10.2 (9.0-12.0) Seconds INR 1.0 (0.9-1.1) APTT 24.1 (21.0-31.0) Seconds PTT Ratio 0.9 POC Sodium (135-144) mEq/L Sodium 134 L (136-145) mmol/L POC Potassium (3.3-5.0) mEq/L Potassium 4.1 (3.5-5.1) mmol/L POC Chloride (101-112) mEq/L Chloride 104 (98-107) mmol/L Carbon Dioxide 22 (21-32) mmol/L POC Total CO2 (24-31) mEq/l Anion Gap 8.0 (3-11) POC Anion Gap (16-25) mmol/L POC BUN (7-18) mg/dl BUN 30 H (7-18) mg/dl Creatinine 1.79 H (0.6-1.4) mg/dl POC Creatinine (0.6-1.3) mg/dl Est Cr Clr Drug Dosing 59.3 ml/min Est GFR ( Amer) 48.7 Est GFR (Non-Af Amer) 42.0 BUN/Creatinine Ratio 16.9 (10-20) Glucose 177 H (70-99) mg/dl POC Glucose (70-99) POC Glucose (other) (70-99) mg/dl Estimat Average Glucose mg/dl Hemoglobin A1c (4.5-5.6) % Calcium 9.4 (8.5-10.1) mg/dl POC Ioniz Calcium Alfa (1.12-1.32) mmol/l Magnesium 2.0 (1.8-2.4) mg/dl Total Bilirubin 0.4 (0.2-1) mg/dl AST 22 (15-37) U/L ALT 34 (12-78) U/L Alkaline Phosphatase 72 (45-117) U/L CK-MB (CK-2) 4.0 H (0.5-3.6) ng/ml Troponin I < 0.015 (0-0.045) ng/ml Total Protein 7.2 (6.4-8.2) gm/dl Albumin 3.5 (3.4-5.0) gm/dl Globulin 3.7 (2.5-4.0) gm/dl Albumin/Globulin Ratio 1.0 (0.9-2) Triglycerides (0-150) mg/dl Cholesterol (0-200) mg/dl LDL Cholesterol, Calc mg/dl VLDL Cholesterol, Calc mg/dl HDL Cholesterol mg/dl Cholesterol/HDL Ratio Homocysteine Lyme Disease IgG Ab (Negative) Lyme Disease IgM Ab (Negative) Hepatitis C Ab Screen (Neg) 03/15/19 Range/Units 18:27 WBC (4.8-10.8) K/uL RBC (4.7-6.1) M/uL Hgb (14.0-18.0) g/dL POC Hgb (14.0-18.0) g/dl Hct (42-52) % POC Hct (42-52) % MCV (80-100) fL MCH (25-34) pg MCHC (32-36) g/dL RDW Std Deviation (36.4-46.3) fL RDW Coeff of Nicola (11.5-14.5) % Plt Count (130-400) K/uL MPV (7.4-10.4) fL Immature Gran % (Auto) % Neut % (Auto) % Lymph % (Auto) % [place] % (Auto) % Eos % (Auto) % Baso % (Auto) % Immature Gran # (Auto) (0.00-0.02) K/uL Neut # (Auto) (1.4-6.5) K/uL Lymph # (Auto) (1.2-3.4) K/uL [place] # (Auto) (0.11-0.59) K/uL Eos # (Auto) (0-0.5) K/uL Baso # (Auto) (0-0.2) K/uL PT (9.0-12.0) Seconds INR (0.9-1.1) APTT (21.0-31.0) Seconds PTT Ratio POC Sodium (135-144) mEq/L Sodium (136-145) mmol/L POC Potassium (3.3-5.0) mEq/L Potassium (3.5-5.1) mmol/L POC Chloride (101-112) mEq/L Chloride (98-107) mmol/L Carbon Dioxide (21-32) mmol/L POC Total CO2 (24-31) mEq/l Anion Gap (3-11) POC Anion Gap (16-25) mmol/L POC BUN (7-18) mg/dl BUN (7-18) mg/dl Creatinine (0.6-1.4) mg/dl POC Creatinine (0.6-1.3) mg/dl Est Cr Clr Drug Dosing ml/min Est GFR ( Amer) Est GFR (Non-Af Amer) BUN/Creatinine Ratio (10-20) Glucose (70-99) mg/dl POC Glucose 163 H (70-99) POC Glucose (other) (70-99) mg/dl Estimat Average Glucose mg/dl Hemoglobin A1c (4.5-5.6) % Calcium (8.5-10.1) mg/dl POC Ioniz Calcium Alfa (1.12-1.32) mmol/l Magnesium (1.8-2.4) mg/dl Total Bilirubin (0.2-1) mg/dl AST (15-37) U/L ALT (12-78) U/L Alkaline Phosphatase (45-117) U/L CK-MB (CK-2) (0.5-3.6) ng/ml Troponin I (0-0.045) ng/ml Total Protein (6.4-8.2) gm/dl Albumin (3.4-5.0) gm/dl Globulin (2.5-4.0) gm/dl Albumin/Globulin Ratio (0.9-2) Triglycerides (0-150) mg/dl Cholesterol (0-200) mg/dl LDL Cholesterol, Calc mg/dl VLDL Cholesterol, Calc mg/dl HDL Cholesterol mg/dl Cholesterol/HDL Ratio Homocysteine Lyme Disease IgG Ab (Negative) Lyme Disease IgM Ab (Negative) Hepatitis C Ab Screen (Neg) PG Care Time/CCT Total # of Minutes Spent Total Time Spent with Patient: Total time spent is greater than 50% in coordination of care (as documented) at patient's floor/unit and/or counseling patient:
[2019-03-17] MEDS: HEPARIN SODIUM/DEXTROSE 25,000 UNITS/500 ML BAG IV SCH (03:38)
[2019-03-17 05:08] LABS: BUN Creatinine Ratio 12.9 (10-20); Calcium 8.6 mg/dl (8.5-10.1); Creatinine Clr Calc Pharmacy 70.7 ml/min; Est GFR (African American) 60.3; Potassium 3.7 mmol/L (3.5-5.1)
[2019-03-17 05:12] LABS: Partial Thromboplastin Ratio 2.9
[2019-03-17 05:41] LABS: Partial Thromboplastin Time 79.2 Seconds (21.0-31.0)
[2019-03-17] MEDS ORDERED: CETIRIZINE HCL 10 MG TABLET PO SCH (09:45)
[2019-03-17] MEDS: INSULIN ASPART 100 UNITS/ML 3 ML PEN SC SCH ×2 (09:48→12:10)
[2019-03-17] MEDS: INSULIN GLARGINE SOLOSTAR 100 UNITS/ML 3 ML PEN SC SCH (09:50)
[2019-03-17] MEDS: ATORVASTATIN 40 MG TAB PO SCH (09:50)
[2019-03-17] MEDS: ASPIRIN 81 MG ECTAB PO SCH (09:50)
--- NOTE | 2019-03-17 10:08 | Cardiology Consultation ---
Date of Consultation March 17, 2019 Assessment & Plan (1) TIA (transient ischemic attack): 53yo M PHM poorly controlled diabetes, nonischemic CM, admitted for TIA. TIA Per the neurology note they are worried that this may be cardioembolic with regards to his LV dysfunction. In discussion with the hospitalist service his heparin can be transitioned to apixaban 5 mg twice daily T2DM, poorly controlled, with neuropathy and nephropathy -Recent A1c 14.6; Non-ischemic CM -Repeated Echo this admission is 35 to 40% -Echo 2017 EF 20% Add Coreg 3.125 mg twice daily with the intention of uptitrating it as an outpa tient. Plan to add angiotensin receptor maria isabel as an outpatient with close monitoring of his renal function given his chronic kidney disease Thickening of the left and noncoronary cusps I do not think this is endocarditis after personally reviewing his echocardiogram. There appears to be calcification on the leaflets. In certain images there is a fluffiness to the leaflets but not seen in the short axis images at all. I would follow his blood cultures as an outpatient if they are positive then he will need a transesophageal echocardiogram. He needs to follow-up with Dr. Beth of cardiology in the [place] office. He is previously seen him as an outpatient. I did discuss with Arturo that he is at a fork in the road and if he does not take control of his medical care he Will likely not make it to the age of 64. 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 He inquired with regards to defibrillator therapy I discussed that he needs to be on maximal medical therapy for 90 days and then have a reassessment of his ejection fraction. Based on that recommendations for defibrillator versus a biventricular defibrillator can be discussed if his EF does not improve above 35% All this was discussed with the hospitalist service in detail Code: Full Dispo: Admit obs to tele DVTP: heparin drip currently (2) Diabetes mellitus type 2 with neurological manifestations: (3) Nonischemic cardiomyopathy: History of Present Illness Attending Physician: Evon Lagunas MD The patient denies any chest pain or chest pressure with activity. He does feel mildly lightheaded and he thinks this is related to the fact that his blood sugars are greater than 400. He denies any lower extremity edema. He denies any weight loss. He notes occasional chills but denies any Rigors night sweats or profuse sweating. He did have a dental extraction about 6 months ago. He does have symptoms of GERD. He complains of a sour taste and a bitter taste in his mouth in the morning. Is unaware of any palpitations or fluttering or feeling his heart racing. He denies a cough he is having some difficulty swallowing. He denies any presyncope syncope. He denies any skin breakdown or sources of infection. 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 The rest of a complete review of systems otherwise negative Allergies Allergy/AdvReac Type Severity Reaction Status Date / Time No Known Allergies Allergy Unverified 03/15/19 18:42 Home Medications Home Medications Medication Instructions Recorded Confirmed Type empagliflozin 10 mg tablet See Rx Instructions .ROUTE 02/15/19 03/15/19 Rx .COMPLEX #30 tablet metoprolol succinate 50 mg 75 mg PO DAILY tab 02/27/19 03/15/19 History tablet,extended release 24 hr dulaglutide 0.75 mg/0.5 mL 0.75 mg SQ WEEKLY #2 ml 03/06/19 03/15/19 Rx subcutaneous pen injector levocetirizine 5 mg tablet 5 mg PO DAILY #30 tab 03/06/19 03/15/19 Rx Pharmacist Discharge Consult 1 % N/A UD PRN 1 Days #1 % 03/16/19 Rx [Pharmacist Discharge Med Rec Consult] aspirin [Ecotrin Low Strength] 81 mg PO QAM 3 Days #3 tab 03/16/19 Rx atorvastatin 40 mg PO QAM 30 Days #30 tab 03/16/19 Rx blood sugar diagnostic [OneTouch #100 ea 03/16/19 Rx Verio] lancets [OneTouch Delica Lancets] #100 ea 03/16/19 Rx Patient History Medical History Allergic rhinitis B12 deficiency Chronic rhinitis Coronary artery disease Diabetes Diabetic autonomic neuropathy Gastritis History of diabetic ulcer of foot Left bundle branch block Microalbuminuria Nonischemic cardiomyopathy Retinopathy Type 2 diabetes mellitus with other diabetic kidney complication Surgical History S/P cardiac cath 2015 Family History Mother Diabetes Breast cancer Social History Preferred Language: German Communication Ability: Effective Visual Impairment: No Limitations Hearing Ability: Normal 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 Beliefs That Will Affect Care: None marital status: Current Living Situation: Spouse current occupational status: employed Other Information That Helps Us Care for You: No Feels Safe at Home: Yes Smoking Status: Unknown if ever smoked Hx Alcohol Use: No Hx Substance Use: No Dental Care, Regularly: Yes Physical Activity Frequency: 5-6 Times per Week Seatbelt Use: sometimes Sunscreen Use: No Results & Data Vital Signs (Past 12 Hours) Vital Signs Temp Pulse Pulse Resp BP Pulse Ox 03/17/19 09:39 95 H 03/17/19 07:56 36.7 C 99 H 18 141/93 H 98 03/17/19 04:50 36.6 C 91 H 16 143/82 H 97 03/16/19 23:12 36.4 C L 82 16 150/77 H 95
[2019-03-17] MEDS ORDERED: carvediloL 3.125 MG TAB PO SCH (10:10)
--- NOTE | 2019-03-17 10:11 | Neurology Progress Note ---
Date of Service March 17, 2019 Assessment & Plan (1) Stroke: Small, probably embolic stroke to the right frontal cortex resulting in a left hemiparesis and associated sensory loss, currently resolved. Patient had also presented with associated suspected aphasia which would localize to the left MCA territory. No evidence of infarction in this area on MRI, however. Cardiac embolism suspected on the basis of this patient's reduced ejection fraction and multifocal left ventricular wall motion abnormalities. Case has been reviewed by cardiology as well. I agree with the recommendation for anticoagulation with apixaban. Patient should also continue with daily low-dose aspirin and atorvastatin in light of his cardiovascular risk factors. His diabetes mellitus will need improved control going forward as well. 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 It does not look like he will require inpatient PT/OT/speech therapy. No further immediate recommendations. Patient may follow-up in the outpatient neurology clinic in 4 to 6 weeks. Subjective Follow-up for stroke The patient denies experiencing any recurrence of left-sided numbness or weaknes s. No recurrence of speech difficulty. His brain MRI did reveal a small subcentimeter stroke within the right frontal lobe cortex potentially consistent with embolism. No evidence of stroke in the left cerebral hemisphere in spite of the transient aphasia at the time of presentation as well. History of low ejection fraction with repeat echocardiogram revealing regional wall motion abnormalities and aortic valve thickening. Current ejection fraction estimated between 35 and 40%. There was some concern regarding the possibility of valvular vegetations. Patient has been seen by Dr. Hamilton, cardiology, in consultation as well. Patient not felt to have endocarditis. Cardiology does agree with anticoagulation, apixaban, for stroke risk prophylaxis in light of this patient's poor left ventricular function. As above, patient denies experiencing any recurrence of focal neurological symptoms. No weakness, numbness, speech difficulty, change in vision, or problems with balance or coordination. He also denies experiencing any fevers or chills or signs or symptoms suggestive of systemic illness. Review of Systems Constitutional: no fever and no chills Neurologic: as per Subjective / HPI; no localized weakness, no loss of sensation, no tremor(s), no seizure-like activity, no headache(s) and no abnormal speech Physical Exam Physical Exam: The patient is a well-developed, well-nourished middle-aged male. He is alert and fully oriented. Memory, attention, speech pattern, and fund of knowledge are all within normal limits. Visual flores full to confrontation. Visual acuity normal. Pupils equal round reactive to light and accommodation. Eye movements normal. There is flattening of the left nasolabial fold. Hearing intact. Palate elevates to midline. Shoulder shrug intact. Tongue protrudes to midline. Sensation intact in all 4 limbs. There is no dysdiadochokinesia or dysmetria [id number] or [id number] bilaterally. Gait and station normal. Patient exhibits normal muscle strength and tone for all 4 limbs. No abnormal movements observed. Results & Data Vital Signs (Past 12 Hours) Vital Signs Temp Pulse Pulse Resp BP Pulse Ox 03/17/19 09:39 95 H 03/17/19 07:56 36.7 C 99 H 18 141/93 H 98 03/17/19 04:50 36.6 C 91 H 16 143/82 H 97 03/16/19 23:12 36.4 C L 82 16 150/77 H 95 Diagnostic Findings Brain MRI completed March 15 reveals a faint subcentimeter focus of restricted diffusion within the posterior right frontal lobe cortex. This finding is consistent with a small acute to subacute infarct. No additional foci of acute ischemia identified. Echocardiography completed yesterday reveals mild concentric left ventricular hypertrophy. There is septal dyskinesia and akinesis of the basal posterior and inferior cooper. There is moderate hypokinesis of the basal anterior and lateral cooper of the left ventricle as well. There is thickening of the aortic valve, vegetation cannot be completely excluded although per further review with Dr. Huynh, not likely.
[2019-03-17] MEDS ORDERED: FAMOTIDINE 20 MG TAB PO SCH (10:15)
[2019-03-17 12:26] LABS: Partial Thromboplastin Ratio 1.9
[2019-03-17 12:28] LABS: Partial Thromboplastin Time 51.9 Seconds (21.0-31.0)
[2019-03-17] MEDS ORDERED: STROKE PATIENT DISCHARGE STA (13:46)
--- NOTE | 2019-03-17 14:44 | Pharmacy Report ---
Pharmacist Stroke Counseling - Date of Service March 17, 2019 - Scope: Pharmacy has been consulted to provide medication discharge counseling for this patient admitted with transient ischemic attack as per the Pharmacist Discharge Counseling for Stroke Patients Protocol. - Medications on Discharge: Home Medications Medication Instructions Recorded Confirmed metoprolol succinate 50 mg 75 mg PO DAILY tab 02/27/19 03/15/19 tablet,extended release 24 hr New Rx's Medication Instructions Recorded empagliflozin 10 mg tablet See Rx Instructions .ROUTE 02/15/19 .COMPLEX #30 tablet dulaglutide 0.75 mg/0.5 mL 0.75 mg SQ WEEKLY #2 ml 03/06/19 subcutaneous pen injector levocetirizine 5 mg tablet 5 mg PO DAILY #30 tab 03/06/19 Pharmacist Discharge Consult 1 % N/A UD PRN 1 Days #1 % 03/16/19 [Pharmacist Discharge Med Rec Consult] aspirin [Ecotrin Low Strength] 81 mg PO QAM 3 Days #3 tab 03/16/19 atorvastatin 40 mg PO QAM 30 Days #30 tab 03/16/19 blood sugar diagnostic [OneTouch #100 ea 03/16/19 Verio] lancets [OneTouch Delica Lancets] #100 ea 03/16/19 apixaban [Eliquis] 5 mg PO BID #60 tab 03/17/19 carvedilol 3.125 mg PO BID 30 Days #60 tab 03/17/19 - Action: The above medications, specifically ones for stroke treatment/prophylaxis, have been reviewed in detail with the patient and/or patient patient services representative(s) prior to discharge. This includes indication, common adverse reactions, drug interactions, and medication administration. Medication counseling has been employed using the teach-back method to ensure understanding. - Outcome: The patient and/or patient patient services representative(s) have demonstrated understanding of the medications. Please note, they are aware that the pharmacist will call them within 72 hours post-discharge to confirm that the appropriate medications are being taken and answer any further medication related questions the patient might have at that time. Contact information Individual to be contacted: Patient Relationship to patient (if applicable): N/A Phone number: [phone] Best time to call: Anytime on Tuesday or Tuesday (03/19 or 03/20) Additional comments: Counseled patient and his today about new meds especially Aspirin, Atorvastatin and Eliquis. Addressed side effects, drug interactions. Patient said he has taken Aspirin before without any problems.They plan on getting new prescriptions filled today. Thank you for allowing pharmacy to be involved in the care of this patient. Please call [phone] or [phone] with any additional questions
--- NOTE | 2019-03-17 16:19 | Discharge Summary ---
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 He notes around 1530 on day of admission, he experienced an acute onset of L arm weakness, which resolved after about 30 minutes. 30 minutes later, L arm weakness returned with additional symptoms of aphasia and L facial paresthesia. At this point his drove him to the ER. By the time he arrived, most symptoms resolved aside from the L facial paresthesia. A stroke alert was called, and it was deemed he likely had an embolic event. CT head negative. Telestroke team noted he may have further symptoms overnight and to repeat consultation with any new symptoms. No tPA administered. Recommended strict bed rest, keeping magnesium between 2-2.5, and heparin drip with bolus. Admission Exam Per Admitting Provider Constitutional: WD/WN, vitals as above Eyes: PERRL, conjunctivae normal, anicteric sclerae normal visual flores by confrontation ENMT: external ear and nose normal, oropharynx normal Neck: normal visual inspection Respiratory: normal respiratory effort, lungs clear to auscultation Cardiovascular: RRR, no murmur, no edema Gastrointestinal (Abdomen): normal bowel sounds, soft, nontender, no hepatosplenomegaly Musculoskeletal: no cyanosis or clubbing, extremities motor strength 5/5 Skin: no rashes, warm and dry Neurologic: PERRL, EOMI, accommodation nl, no face palsy, no dysarthria CN's II-XI intact bilaterally (Sensation altered to soft touch on L face V2-V3 area), deep tendon reflexes 2+ bilaterally and moves all extremities; + abnormal touch/pain/proprioception (abnormal facial sensation V2-V3. Bilat peripheral neuropathy @b/l; dim sens) Speech / Cognition: normal speech Psychiatric: A+Ox3, euthymic affect Principal Diagnosis CVA, Uncontrolled DM, Cardiomyopathy Discharge Exam General: Resting comfortably HEENT: NC/AT; PERRLA with EOMI; [place] conjunctiva, MMM. No erythema of posterior pharynx Neck: Supple and nontender Cardiac: RRR Lungs: CTA bilaterally Abdomen: Bowel normoactive X 4; Nontender to palpation Extremities: Warm. No edema present Neuro: No focal weakness Skin: No rash Discharge Data Allergies Allergy/AdvReac Type Severity Reaction Status Date / Time No Known Drug Allergies Allergy Verified 03/20/19 14:10 Consultations 03/15/19 19:36 ED Decision to Admit Stat 03/15/19 22:00 Consult Case Management - Discharge Planning Routine Consult Neurology Routine 03/16/19 17:19 Consult Cardiology Routine 03/17/19 12:43 Consult [facility] police artist Routine Ordered Studies 03/15/19 18:09 CT angio head w con Stat CT angio neck with con Stat CT head/brain wo con Stat CXR 03/15/19 19:32 MR brain wo con Stat Hospital Course (1) Stroke: Brain MRI showed posterior right frontal lobe cortex CVA. Head CT, Head/Neck CTA were negative. Echo showed improvement in EF but did note thickened aortic valve -- concern for bacterial endocarditis. Consulted cardiology -- is not likely related to vegetation. Blood cultures are pending, will need to be followed as outpatient. No evidence of arrhythmias noted on telemetry. Stroke protocol with neuro checks. Received heparin drip; converted to Eliquis 5 mg BID at discharge per cardiology and neurology recommendations as this could possibly be thromboembolic event from low LVEF Severely uncontrolled DM -- hgb A1C >14; met with hospice educator, will f/u closely with Dr. Ferreira to discuss starting basal insulin. Currently on Trulicity once weekly injection. ASA 81 mg daily and Atorvastatin 40 mg daily. PT/OT - discharged to home. (2) Type 2 diabetes mellitus with other diabetic kidney complication: A1C is 14.2; was previously 14.6 in Feb 2019. Recently started Trulicity once weekly injection. Met with the hospice educator; pt. 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 Will continue home injection but follow up closely with Dr. Ferreira to discuss completing exception forms as outpatient. Will also need to follow up with endocrinology at next available appt (currently scheduled in May 2019) Carb consistent diet. (3) Microalbuminuria: In setting of diabetic nephropathy. (4) Diabetic autonomic neuropathy: Type II DM control as noted above. (5) Nonischemic cardiomyopathy: Previous EF in Mar 2017 showed EF 20-25%; had normal cath at that time. Repeat EF showed EF 35-40%, regional wall motion abnormalities and thickened aortic valve (?vegetation, see above) Has not tolerated ACEI in past; convert Metoprolol for Coreg 3.125 mg BID per cardiology recs. Will also start Eliquis 5 mg BID. (6) Left bundle branch block: Known diagnosis; previous cardiac cath was negative. (7) Retinopathy: In setting of uncontrolled diabetes. 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 Creatinine is likely at baseline. Discharged to home on 03/17/19. Will need close f/u with cardiology, PCP and endocrinology. Total Time Total Time Spent Total Time Spent (In Minutes): >30 minutes Total Time Includes: Examination of the Patient, Discharge Planning, Medication Reconciliation, Communication With Other Providers and Other Discharge Plan Discharge Items Patient Disposition: Home - Self-Care Reason For Visit: STROKE LIKE SYMPTOMS Discharge Diagnosis: CVA, Uncontrolled Diabetes Mellitus, Cardiomyopathy Condition on Discharge: Fair Goals: You have been hospitalized for an acute medical problem. During your stay at [facility], we have made an effort to correct the problem that brought you to the hospital while keeping you as comfortable as possible. Medications were used to bring your condition under control and your discharge instructions will include directions for any medications you should take after leaving the hospital. Please make sure you see your Primary Care Provider as part of your follow up plan. Activity: As commented below Exercise/Sports: Gradually increase as tolerated Non-emergency contact: Primary Care Provider and Neurologist Call non-emergency contact if: you have any medication questions, your symptoms worsen and you have a fever Follow-up/Referrals: Myke Mccormack MD [Physician] - (Please follow up with Dr. Mccormack of Neurology for your stroke in 6-8 weeks. ) Chapo Terrazas MD [Physician] - (Please, follow up at the [facility] Endocrinology Office. *A nurse from this office will call you with the appointment details. If you have any questions or haven't heard from them within a week, call the office at [phone]. The office is located in [address] of [facility], next to [facility].) Tracey Ferreira DO [Primary Care Provider] - 03/20/19 10:15 am (Please, follow up at Dr. Ferreira's office with her associate, Pepper Menard, on TuesdayMarch 20 at 10:15 am. *If you need to change this appointment, call their office at [phone].) Diet: Carb Consistent or DM2 and Heart Healthy Addtl Attending Provider Instructions: 1. Stroke * Please take Aspirin 81 mg daily and Atorvastatin 40 mg daily. * Eliquis 5 mg twice daily has been started per cardiology recs; please monitor for signs of bleeding, including easy bruising, nose bleeds, blood in stool or urine. * if you have a fall and hit your head or develop a bad headache, please go to the hospital immediately. * Refer to instructions below for diabetes management. * Discontinue use of all tobacco containing products at home. * You will need to follow up with neurology as an outpatient -- please schedule appt in 6-8 weeks. 2. Diabetes Mellitus * Hemoglobin A1C is very uncontrolled - leading to increased risk of recurrent stroke in the future. * Please follow up with Dr. Ferreira as scheduled on 03/20/19 to discuss blood glucose management. You will also need to follow up with endocrinology as an outpatient. * Continue once weekly Trulicity until your follow up appointment. * Continue to monitor blood glucose levels with meals and at bedtime following discharge. 3. Cardiomyopathy * Coreg 3.125 mg twice daily has been started. * Eliquis 5 mg twice daily has also been started (see above). * You will need to follow up with Dr. Beth - this appointment will be scheduled by our nurse navigator. 4. Please follow up with PCP as scheduled on 03/20/19 to discuss results of your blood cultures/general medical management. Activity Recommendations: See above Activation of Emergency Medical System: Call 911, immediately, if you experience any of the following: Warning Signs and Symptoms of Stroke: * Sudden numbness or weakness of the face, arm or leg, especially on one side of the body * Sudden confusion, trouble speaking or understanding * Sudden trouble seeing in one or both eyes * Sudden trouble walking, dizziness, loss of balance or coordination * Sudden severe headache with no cause Do not delay calling 911 if you experience any warning signs or symptoms of a stroke. Delay in seeking medical attention may affect what treatments can be given to you. Risk Factors for Stroke: You can reduce your chances of stroke by working with your medical provider to adopt a healthy lifestyle. Some specific ways to lower your chance of stroke are: * If you are a smoker, now is the time to stop smoking cigarettes * If you are diabetic, improve the control of your blood sugars * Avoid excessive amounts of alcohol * Control high blood pressure * Lose weight if you are overweight * Be sure to lead an active lifestyle * Eat a healthy diet low in salt, cholesterol and fat You should know about other risk factors for stroke that you are unable to control. These include: * Age 55 years or older * Male gender * Certain racial groups: , or / * Family History of Stroke, Mini stroke or Heart Attack * Sickle Cell Disease Follow Up: It is important for you to keep your follow up appointments with your medical provider. Who to Call and When: Medical Emergencies: Call 911 immediately if you experience any of the following warning signs and symptoms of Stroke: * Sudden numbness or weakness of the face, arm or leg, especially on one side of the body * Sudden confusion, trouble speaking or understanding * Sudden trouble seeing in one or both eyes * Sudden trouble walking, dizziness, loss of balance or coordination * Sudden severe headache with no cause Do not delay calling 911 if you experience any warning signs or symptoms of a stroke. Delay in seeking medical attention may affect what treatments can be given to you. Pending Studies at Discharge: No Stand-Alone Forms: Medications to Prevent Stroke, My [facility], Smoking Cessation Medications and DC Order Prescriptions: New atorvastatin 40 mg Tablet 40 mg PO QAM 30 Days Qty: 30 RF: 0 (DME) OneTouch Verio strip See Rx Instructions .ROUTE .MEDSUPPLY Qty: 100 RF: 0 (DME) lancets [OneTouch Delica Lancets] 30 gauge misc See Rx Instructions .ROUTE .MEDSUPPLY Qty: 100 RF: 0 Eliquis 5 mg tablet 5 mg PO BID Qty: 60 RF: 3 Continued Trulicity 0.75 mg/0.5 mL pen injector 0.75 mg SQ WEEKLY Qty: 2 RF: 1 levocetirizine [Xyzal] 5 mg tablet 5 mg PO DAILY Qty: 30 RF: 2 Discontinued empagliflozin [Jardiance] 10 mg tablet See Rx Instructions .ROUTE .COMPLEX Qty: 30 RF: 4 metoprolol succinate [Toprol XL] 50 mg tablet extended release 24 hr 75 mg PO DAILY RF: 0 No Action carvedilol 6.25 mg tablet 6.25 mg PO BID Qty: 60 RF: 1 omeprazole 40 mg capsule,delayed release(DR/EC) 40 mg PO DAILY Qty: 90 RF: 0 aspirin [Aspirin Low Dose] 81 mg Tablet,Delayed Release (Dr/Ec) 81 mg PO DAILY RF: 0 Discharge Orders: Discharge Order (Routine); Ordered 03/17/19 Ordered By: Evon Houston/Other Patient Handouts: Diabetes Drywall Applicator Complications, Hyperglycemia, Hypoglycemia, Diabetes Type 2 Coping, Diabetes Healthy Meals, Diabetes Carbs, Diabetes Inspect Feet, Diabetes Exercise Benefits, Diabetes Activity Tips, Diabetes Living Life Admission Data Admit Date/Time: 03/16/19 17:23 Attending Provider: Evon Lagunas Admit Provider: Harriet Mantilla Primary Care Provider: Tracey Ferreira Other Providers: Myke Mccormack ; Kurt Barkley ; Alli Huynh Other Interventions: Discharge Summary Assessment (RN) Last Done: 03/17/19 15:21 DC Date/Time DO NOT enter until pt leaves facility: 03/17/19 15:25 Supervising Physician Co-Signing Physician Notes PA Supervision Note: I personally saw and examined the patient. I verified all tee points and agree with ANIYA Samaniego with the following exceptions and/or additions: Patient feeling much better, no residual focal neurological symptoms. Denies headache. Vitals reviewed Gen: AAOx3, NAD HEENT: Anicteric sclerae, EOMI CV: RRR no mgr nl S1S2 Pulm: CTAB no wcr Ext: No edema, 2+ DP pulses Skin: No rashes, warm/dry Neuro: Full strength throughout 53-year-old male with multiple uncontrolled medical issues as above, here with likely thromboembolic stroke, severely uncontrolled diabetes, and nonischemic cardiomyopathy. -Starting anticoagulation with Eliquis as above, plan otherwise noted and reviewed. Needs close follow-up with PCP, cardiology, neurology.
[2019-03-17] MEDS ORDERED: APIXABAN 5 MG TABLET PO ONE (17:00)
[2019-03-18] MEDS ORDERED: APIXABAN 5 MG TABLET PO SCH (09:00)
--- NOTE | 2019-03-19 10:46 | XCELERA ---
[id number] \\[id number]
--- NOTE | 2019-03-19 10:51 | Pharmacy Report ---
Pharmacist Post D/C Phone Note - Phone Note: Date of phone call: March 19, 2019. Individual with whom pharmacist spoke to: NAM Pablo WEST The following questions were reviewed during the phone call with responses listed below each: Can you tell me the medications that you are currently taking as well as when and how you take each medication? -See Table Below When have you missed any doses of your medications? - No missed doses What side effects are you having from your medications, specifically, the new medications you were started on? - No side effects observed from medications What questions do you have about your medications? - No questions What problems are you having obtaining your medications? - None - medications picked up When is your next appointment with your primary care doctor? - Tomorrow AM Additional comments: - Reviewed all medications - patient had bottles in front of him. Reviewed the instructions on the bottle and patient stated that he has been following these directions. Patient also taking aspirin 81 mg daily (OTC) as instructed. As per the Pharmacist Discharge Counseling for Stroke Patients Protocol, this phone call has been completed within 72 hours of discharge. Thank you for allowing us to be involved in the care of this patient. - Home Medications: New Rx's Medication Instructions Recorded dulaglutide 0.75 mg/0.5 mL 0.75 mg SQ WEEKLY #2 ml 03/06/19 subcutaneous pen injector levocetirizine 5 mg tablet 5 mg PO DAILY #30 tab 03/06/19 atorvastatin 40 mg PO QAM 30 Days #30 tab 03/16/19 blood sugar diagnostic [OneTouch #100 ea 03/16/19 Verio] lancets [OneTouch Delica Lancets] #100 ea 03/16/19 apixaban [Eliquis] 5 mg PO BID #60 tab 03/17/19 carvedilol 3.125 mg PO BID 30 Days #60 tab 03/17/19
== END 2019-03-17 15:25 | disposition home or self-care (01) | DRG 65 ==
LOC: ED 17:59 → 2S 17:59 → SUATTDRO 20:30 → 2S 21:01 → SUATTDRO 03-16 17:23